=== PATIENT | female | born 1940 | race Caucasian/White ===

== ENCOUNTER 2016-11-16 21:51 | Emergency (ER) | payer OTHER ==
[~2016-11-16] VITALS: Ht 157.5 cm; Wt 60.2 kg
[~2016-11-16 21:51] MED LIST: AMLO-110 PO; ASPCH81 PO; ATEN-173 PO; BUDESUS; FLUT0.15 NAE; IPRA1AER2 INH; NAPR1TAB9 PO; SIMV20TA2 PO; TIOTCAP INH
[2016-11-16 21:53] VITALS: TEMP 36.5; Ht 157.5 cm; Wt 60.2 kg
[2016-11-16] MEDS ORDERED: DEXAMETHASONE SOD INJ 10 MG/ML VIAL IV ONE (22:15)
--- NOTE | 2016-11-16 22:36 | DIAGNOSTIC IMAGING REPORT ---
CHEST ONE VIEW PORTABLE CLINICAL HISTORY: Chest pain. COMPARISON STUDY: No previous studies for comparison. FINDINGS: The patient is rotated. Cardiac size is within normal limits. There is no pneumothorax or pleural effusion. Linear left midlung opacity reflect atelectasis or scarring. There is no evidence of pulmonary edema. There is tortuosity of the descending thoracic aorta. IMPRESSION: No acute cardiopulmonary findings. Electronically signed by: Salvador Jacinto M.D. 11/16/2016 10:34 PM Dictated Date/Time: 11/16/2016 10:33 PM
[2016-11-16 22:46] VITALS: O2SAT 95
--- NOTE | 2016-11-16 22:49 | DIAGNOSTIC IMAGING REPORT ---
LEFT KNEE 3 VIEWS CLINICAL HISTORY: Left knee pain. COMPARISON: None FINDINGS: Alignment of left knee is anatomic. Note is made of a 2.4 x 2 cm sclerotic lesion within the medial aspect of the proximal left tibia. Joint spaces are preserved. There is no acute fracture. No joint effusion is present. IMPRESSION: 1. No acute fracture. 2. 2.4 x 2 cm mixed sclerotic and lucent lesion within the medial aspect of the proximal left tibia. Although a benign etiology is favored, this lesion is indeterminate and if persistent pain, an MRI of the left knee could be obtained. Electronically signed by: Salvador Jacinto M.D. 11/16/2016 10:47 PM Dictated Date/Time: 11/16/2016 10:39 PM
[2016-11-16] MEDS ORDERED: ASPI81TA28 PO (22:53)
[2016-11-16] MEDS ORDERED: LPT/40 PO (22:53)
[2016-11-16] MEDS ORDERED: VNTHFA/IN INH (22:53)
[2016-11-16] MEDS ORDERED: AMLO5TAB2 PO (22:53)
[2016-11-16] MEDS ORDERED: CLOP1TAB15 PO (22:53)
[2016-11-16] MEDS ORDERED: LOSA25TA18 PO (22:53)
[2016-11-16] MEDS ORDERED: ADVIN25/60 INH (22:53)
[2016-11-16] MEDS ORDERED: NTRGSL/4 UT (22:53)
[2016-11-16] MEDS ORDERED: SPRIN/30 INH (22:53)
[2016-11-16 23:01] LABS: BASO % 0.7 %; BASO ABS # 0.05 K/uL (0-0.2); COMPLETE YES; EOS % 3.9 %; HEMATOCRIT 29.4 % (37-47); IG% 0.1 %; LYMPH % 11.6 %; LYMPH ABS # 0.78 K/uL (1.2-3.4); MEAN CELL VOLUME 83.1 fL (80-100); MEAN CORPUSCULAR HEMOGLOBIN 27.4 pg (25-34); MEAN PLATELET VOLUME 8.6 fL (7.4-10.4); MONO % 8.6 %; NEUT % 75.1 %; PLATELET COUNT 237 K/uL (130-400); RED BLOOD COUNT 3.54 M/uL (4.2-5.4); WHITE BLOOD COUNT 6.71 K/uL (4.8-10.8)
[2016-11-16] MEDS ORDERED: MoRPHine SULFATE 2 MG/ML CARP IV STA (23:16)
[2016-11-16] MEDS ORDERED: ONDANSETRON INJ 2 MG/ML 2 ML VIAL IV STA (23:16)
[2016-11-16 23:19] LABS: PARTIAL THROMBOPLASTIN RATIO 1.1; PROTHROMBIN TIME (PATIENT) 10.5 SECONDS (9.0-12.0)
[2016-11-16 23:21] LABS: ALT/SGPT 23 U/L (12-78); AST/SGOT 10 U/L (15-37); BLOOD UREA NITROGEN 25 mg/dl (7-18); BUN/CREATININE RATIO 22.9 (10-20); CALCIUM 8.6 mg/dl (8.5-10.1); CARBON DIOXIDE 24 mmol/L (21-32); CHLORIDE 105 mmol/L (98-107); GLUCOSE 128 mg/dl (70-99); MAGNESIUM 2.2 mg/dl (1.8-2.4); POTASSIUM 4.2 mmol/L (3.5-5.1); SODIUM 138 mmol/L (136-145)
[2016-11-16 23:26] LABS: ALB/GLOB RATIO 1.1 (0.9-2); ALKALINE PHOSPHATASE 82 U/L (45-117)
--- NOTE | 2016-11-16 23:28 | EMERGENCY ROOM VISIT NOTE ---
ED Visit Note First contact with patient: 21:59 I have personally evaluated and examined this patient. I agree with assessment and plan of Bebo Graves PA-C. Migratory polyarthralgia increasing pain over last 24 hours.
[2016-11-17] MEDS ORDERED: MoRPHine SULFATE 4 MG/ML 1 ML CARP\\VIAL IV STA (00:44)
[2016-11-17 01:46] LABS: LYME DISEASE AB IGG NEG (NEG)
[2016-11-17 02:21] LABS: LYME DISEASE AB IGM NEG (NEG)
[2016-11-17 02:24] VITALS: BP 116/71; PULSE 94; O2SAT 93
--- NOTE | 2016-11-17 02:41 | EMERGENCY ROOM VISIT NOTE ---
History First contact with patient: 21:59 Chief Complaint: SWELLING TO EXTREMITY Stated Complaint: SWELLING PAIN LOSS OF USE BOTH ARMS HANDS History of Present Illness The patient is a 76 year old female who presents to the Emergency Department by private vehicle with her son for evaluation of swelling to her bilateral hands and pain to the bilateral hands an knees. She has had worsening symptoms over the past 24 hours. 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 She has followed with rheumatology in the past , but not recently. She previously was on prednisone therapy chronically, but no longer takes his medications. She's had no fevers or chills. There is been no recent upper respiratory infections. There is been no known tick bites. There has been no rashes. There has been no falls or injuries to the affected areas. She rates her current discomfort as an 8/10. She has tried nothing over -the-counter for symptoms. The patient's history is complicated by a recent WA 5 weeks ago while visiting her son in [place]. She subsequently went into respiratory distress and was intubated for one week in the ICU. She had a cardiac catheterization performed which showed a 100% occlusion of the RCA. She had 2 stents placed at that time. She had been doing well, but there was a reported possible reaction to isosorbide which she was placed on by her manager welding. This medication was discontinued at his recommendation. The patient has a significant past medical history for COPD as well. She currently denies any chest pain, palpitations, short of breath, hemoptysis, abdominal pain, fevers, chills, back pain, or other extremity pain. Review of Systems A complete 10-point Review of Systems was discussed with the patient, with pertinent positives and negatives listed in the History of Present Illness. All remaining Review of Systems questions can be considered negative unless otherwise specified. 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 (3) Carotid stenosis (4) COPD, severe (5) Dyslipidemia (6) Heart failure, systolic, due to CAD (7) History of WA (myocardial infarction) (8) HTN (hypertension) (9) Mitral regurgitation (10) Osteoarthritis (11) Osteoporosis (12) PVD (peripheral vascular disease) (13) Respiratory failure Surgical Problems: (1) History of procedure for peripheral vascular disease (2) S/P coronary artery stent placement Social History Smoking Status: Former Smoker Alcohol Use: none Drug Use: none Housing Status: lives with family Occupation Status: retired Current/Historical Medications Scheduled Amlodipine Besylate (Norvasc), 5 MG PO DAILY Aspirin (Aspirin Ec), 81 MG PO DAILY Atenolol (Tenormin), 25 MG PO Q12 Atorvastatin (Lipitor), 40 MG PO DAILY Clopidogrel (Plavix), 75 MG PO DAILY Fluticasone Prop/Salmeterol (Advair Diskus 250/50 60 Dose), 1 PUFF INH BID Losartan Potassium (Cozaar), 25 MG PO DAILY Prednisone (Prednisone), 10 MG PO UD Tiotropium [place] (Spiriva Handihaler), 1 CAP INH DAILY Scheduled PRN Albuterol Hfa (Ventolin Hfa), 2 PUFFS INH Q4H PRN for Shortness of Breath Diphenhydramine Hcl (Benadryl Allergy), 1 CAP PO QID PRN for as needed Oxycodone/Acetaminophen 5MG/325MG (Percocet 5MG/325MG), 1 TABLET PO Q6H PRN for Moderate Pain Allergies Coded Allergies: No Known Allergies (Unverified , 11/19/16) Physical Exam Vital Signs Date Time Temp Pulse Resp B/P Pulse Ox O2 Delivery O2 Flow Rate FiO2 11/17/16 02:24 94 18 116/71 93 Room Air 11/17/16 02:21 91 Room Air 11/17/16 02:10 98 11/17/16 02:00 87 Room Air 11/17/16 01:27 91 16 142/75 94 Room Air 11/16/16 23:29 86 16 97/85 93 Room Air 11/16/16 22:46 95 Room Air 11/16/16 22:35 85 11/16/16 21:53 36.5 92 18 145/90 94 Room Air Pain Rating (0-10): 8 Physical Exam VITAL SIGNS - Vital signs and nursing notes were reviewed. GENERAL - 76-year-old female appearing her stated age who is in no acute distress. Communicates well with provider and answers questions appropriately. SKIN - Without rash. NECK - Neck with FROM. Supple to palpation. LUNGS - Chest wall symmetric without accessory muscle use, intercostals retractions, or central cyanosis. Normal vesicular breath sounds CTA B/L. No wheezes, rales, or rhonchi appreciated. CARDIAC - RRR with S1/S2. No murmur, rubs, or gallops appreciated. No reproducible tenderness to palpation appreciated over the anterior chest wall. ABDOMEN - Abdominal contour obese and without pulsations or visible masses. BS normoactive all four quadrants. No tenderness, palpable masses, hepatosplenomegaly, or ascites noted. EXTREMITIES - No clubbing or peripheral cyanosis. No pretibial edema present. Decreased range of motion secondary to subjective pain noted to the bilateral hands. Tenderness to palpation to the LEFT knee. No edmundo edema, erythema, or ecchymosis. +3/5 radial and dorsalis pedis pulses palpated throughout. +4/5 strength noted in UE/LE bilaterally. NEUROLOGIC - Cranial nerves II through XII grossly intact. Sensory intact to light touch throughout. PSYCH - A&Ox3 and cooperates fully with examiner. Pt is very pleasant and interacts well with examiner. Medical Decision & Procedures ER Provider Diagnostic Interpretation: Radiological imaging and reports were reviewed by myself. Radiologist's Interpretation as follows: CHEST ONE VIEW PORTABLE CLINICAL HISTORY: Chest pain. COMPARISON STUDY: No previous studies for comparison. FINDINGS: The patient is rotated. Cardiac size is within normal limits. There is no pneumothorax or pleural effusion. Linear left midlung opacity reflect atelectasis or scarring. There is no evidence of pulmonary edema. There is tortuosity of the descending thoracic aorta. IMPRESSION: No acute cardiopulmonary findings. LEFT KNEE 3 VIEWS CLINICAL HISTORY: Left knee pain. COMPARISON: None FINDINGS: Alignment of left knee is anatomic. Note is made of a 2.4 x 2 cm sclerotic lesion within the medial aspect of the proximal left tibia. Joint spaces are preserved. There is no acute fracture. No joint effusion is present. IMPRESSION: 1. No acute fracture. 2. 2.4 x 2 cm mixed sclerotic and lucent lesion within the medial aspect of the proximal left tibia. Although a benign etiology is favored, this lesion is indeterminate and if persistent pain, an MRI of the left knee could be obtained. Laboratory Results 11/16/16 22:40 Red Blood Count 3.54, Mean Corpuscular Volume 83.1, Mean Corpuscular Hemoglobin 27.4, Mean Corpuscular Hemoglobin Concent 33.0, Mean Platelet Volume 8.6, Neutrophils (%) (Auto) 75.1, Lymphocytes (%) (Auto) 11.6, Monocytes (%) (Auto) 8.6, Eosinophils (%) (Auto) 3.9, Basophils (%) (Auto) 0.7, Neutrophils # (Auto) 5.03, Lymphocytes # (Auto) 0.78, Monocytes # (Auto) 0.58, Eosinophils # (Auto) 0.26, Basophils # (Auto) 0.05 11/16/16 22:40 Test 11/16/16 22:40 White Blood Count 6.71 K/uL (4.8-10.8) Red Blood Count 3.54 M/uL (4.2-5.4) Hemoglobin 9.7 g/dL (12.0-16.0) Hematocrit 29.4 % (37-47) Mean Corpuscular Volume 83.1 fL (80-100) Mean Corpuscular Hemoglobin 27.4 pg (25-34) Mean Corpuscular Hemoglobin Concent 33.0 g/dl (32-36) Platelet Count 237 K/uL (130-400) Mean Platelet Volume 8.6 fL (7.4-10.4) Neutrophils (%) (Auto) 75.1 % Lymphocytes (%) (Auto) 11.6 % Monocytes (%) (Auto) 8.6 % Eosinophils (%) (Auto) 3.9 % Basophils (%) (Auto) 0.7 % Neutrophils # (Auto) 5.03 K/uL (1.4-6.5) Lymphocytes # (Auto) 0.78 K/uL (1.2-3.4) Monocytes # (Auto) 0.58 K/uL (0.11-0.59) Eosinophils # (Auto) 0.26 K/uL (0-0.5) Basophils # (Auto) 0.05 K/uL (0-0.2) RDW Standard Deviation 43.5 fL (36.4-46.3) RDW Coefficient of Variation 14.2 % (11.5-14.5) Immature Granulocyte % (Auto) 0.1 % Immature Granulocyte # (Auto) 0.01 K/uL (0.00-0.02) Erythrocyte Sedimentation Rate 28 mm/hr (0-21) Prothrombin Time 10.5 SECONDS (9.0-12.0) Prothromb Time International Ratio 1.0 (0.9-1.1) Activated Partial Thromboplast Time 29.2 SECONDS (21.0-31.0) Partial Thromboplastin Ratio 1.1 Anion Gap 9.0 mmol/L (3-11) Est Creatinine Clear Calc Drug Dose 38.4 ml/min Estimated GFR () 57.3 Estimated GFR (Non- 49.4 BUN/Creatinine Ratio 22.9 (10-20) Calcium Level 8.6 mg/dl (8.5-10.1) Magnesium Level 2.2 mg/dl (1.8-2.4) Total Bilirubin 0.2 mg/dl (0.2-1) Aspartate Amino Transf (AST/SGOT) 10 U/L (15-37) Alanine Aminotransferase (ALT/SGPT) 23 U/L (12-78) Alkaline Phosphatase 82 U/L (45-117) Troponin I < 0.015 ng/ml (0-0.045) C-Reactive Protein 3.60 mg/dl (0-0.29) Total Protein 6.7 gm/dl (6.4-8.2) Albumin 3.5 gm/dl (3.4-5.0) Globulin 3.2 gm/dl (2.5-4.0) Albumin/Globulin Ratio 1.1 (0.9-2) Lyme Disease IgG Antibody NEG (NEG) Lyme Disease IgM Antibody NEG (NEG) Medications Administered Medications (Trade) Dose Ordered Sig/Alcira Route Start Time Stop Time Status Last Admin Dose Admin Dexamethasone Sodium Phosphate (Decadron Inj) 10 mg NOW ONCE IV 11/16/16 22:15 11/16/16 22:16 DC 11/16/16 22:40 10 MG Morphine Sulfate (MoRPHine SULFATE INJ) 2 mg NOW STAT IV 11/16/16 23:16 11/16/16 23:17 DC 11/16/16 23:29 2 MG Ondansetron HCl (Zofran Inj) 4 mg NOW STAT IV 11/16/16 23:16 11/16/16 23:17 DC 11/16/16 23:28 4 MG Morphine Sulfate (MoRPHine SULFATE INJ) 4 mg NOW STAT IV 11/17/16 00:44 11/17/16 00:45 DC 11/17/16 00:54 4 MG Oxycodone/ Acetaminophen (Percocet 5/ 325MG Home Pack) 1 homepack UD ONCE PO 11/17/16 02:45 11/17/16 02:46 DC 11/17/16 02:54 1 HOMEPACK Procedure Patient was placed on the manager monitoring and monitored throughout the entire extent of their stay. In addition, the patient's pulse oximetry was monitored throughout the entire stay. Any abnormalities or aberrancies were addressed appropriately. ECG Indication: other (recent WA) Rate (beats per minute): 84 Rhythm: normal sinus Findings: nonspecific-ST abn (Lateral) Comparison ECG Date: no prior available ED Course Patient was seen and evaluated by myself. Labs were drawn, saline lock in place. EKG and chest x-rays were obtained. X-ray of the LEFT knee was obtained. Patient was treated with 10 mg Decadron intravenously. She received 2 mg morphine and 4 mg Zofran for pain. Laboratory results demonstrate no acute leukocytosis. The patient has a mild anemia. She has no significant electrolyte abnormalities. Cardiac enzymes were negative. Troponin was negative. Patient was reevaluated and has some mild ongoing pain. She was treated with an additional 4 mg morphine intravenously. The patient's stay was delayed by the lab error on the patient's Lyme titer. The machine had malfunctioned. This was relayed to the family who acknowledges understanding. Lyme test eventually returned and Lyme titers were negative. Laboratory results and imaging studies were reviewed with the patient and family who acknowledges understanding. Case was discussed with my attending physician who independently evaluated the patient and agrees with the diagnostic approach treatment plan. The patient has a follow-up appointment tomorrow with her primary care provider. She will keep this appointment. She and family were comfortable with disposition and plan. She was educated on worrisome symptoms for return visit to the emergency department. Patient discharged home in good condition with her family driving. Medical Decision Given the patient's presentation and stated complaints, I did elect to perform the above-mentioned workup. The patient presents today with subjective swelling to the bilateral hands an knees. Her symptoms have progressed over the past 24 hours. She has no fevers. There is been no rashes. There is been no recent upper respiratory infections. 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 She had been on chronic steroid therapy. This has been many years ago. Her exam demonstrates pain to the bilateral hands as well as pain through range of motion. She does have pain with range of motion of the LEFT knee as well. I did perform a cardiac evaluation given the patient's recent significant cardiac history despite any complaints of chest pain or shortness of breath issues. Her cardiac evaluation was otherwise unremarkable. Cardiac enzymes were not elevated. X-ray of her knee did demonstrate a sclerotic area, however her symptoms are more acute and there is been no recent trauma. This is certainly is something that she can follow up with in the outpatient setting. She has no fever leukocytosis. Her pain was adequately controlled the emergency setting. She was placed on IV dose of steroids after discussion with my attending physician. She will be placed in a short course of steroids as well as Percocet for breakthrough pain which she has had the past with success. She does have a follow-up appointment tomorrow with her primary care provider. I feel this is appropriate for continuity of care. She and her family were educated on worrisome symptoms for return visit to the emergency department. They're comfortable with disposition and plan. Patient discharged home afebrile and in good condition. In the evaluation and treatment of this patient, the following differential diagnoses were considered: Septic arthritis, Lyme disease, reactive arthritis, cellulitis, autoimmune reaction, vascular abnormality, medication reaction, fracture, ischemia, ACS, WA, amongst others. Impression Primary Impression: Polyarthralgia Departure Information Dispostion Home / Self-Care Condition GOOD Referrals Dereje Briones D.O. (PCP) Patient Instructions My [facility] Additional Instructions You have been seen in the emergency permit today for polyarthralgias. You have been prescribed Percocet to be used for pain control. This is a narcotic medication. You cannot drive or consume alcohol while on this medicine. This medicine should only be used for pain that cannot be controlled with [id number] pain medicines. You have been prescribed Prednisone for the next several days as prescribed. This is an anti-inflammatory medicine to be used to help minimize your symptoms. You should take the COMPLETE course of the medication. For pain control, you can use the following [id number] medicines (if >12 yo): - Regular strength (325mg/tab) Tylenol (acetaminophen) 2 tabs every 4-6 hours as needed. Do not exceed 12 tablets in a 24 hour period. Avoid taking more than 4 grams (4000 mg) of Tylenol per day. This includes any other sources of acetaminophen you may take on a regular basis. - Regular strength (200 mg/tab) Advil (ibuprofen) 1-2 tabs every 4-6 hours as needed. Do not exceed a dose of 3200 mg per day. Keep your appointment with your primary care provider tomorrow as scheduled. Return for any changing or worsening symptoms.
[2016-11-17] MEDS ORDERED: PERCOCET HOME PACK PO ONE (02:45)
== END 2016-11-17 02:59 | disposition home or self-care (01) ==
LOC: C.EDB 21:52 → C.EDC 11-17 02:59
DX: M25.541 Pain in joints of right hand (principal); M25.542 Pain in joints of left hand; M25.561 Pain in right knee; M25.562 Pain in left knee; I25.2 Old myocardial infarction; I70.90 Unspecified atherosclerosis; J44.9 Chronic obstructive pulmonary disease, unspecified; I77.1 Stricture of artery; I10 Essential (primary) hypertension; M19.90 Unspecified osteoarthritis, unspecified site; J96.90 Respiratory failure, unspecified, unspecified whether with hypoxia or hypercapnia; I73.9 Peripheral vascular disease, unspecified; Z87.891 Personal history of nicotine dependence; Z79.82 Long term (current) use of aspirin; Z79.02 Long term (current) use of antithrombotics/antiplatelets; Z79.52 Long term (current) use of systemic steroids; Z79.899 Other long term (current) drug therapy

== ENCOUNTER 2016-11-19 10:27 | Inpatient (IN) | payer OTHER ==
[2016-11-19] VITALS (48 sets, daily range): BP systolic 56–105; BP diastolic 44–70; PULSE 74–134; TEMP 34.2–35.1; O2SAT 97–100; Ht 160 cm; Wt 58.8 kg
[~2016-11-19] VITALS: Ht 160 cm; Wt 58.8 kg
[~2016-11-19 10:27] MED LIST changes: +ADVIN25/60 INH; -AMLO-110 PO; +AMLO5TAB2 PO; -ASPCH81 PO; +ASPI81TA28 PO; -BUDESUS; +CLOP1TAB15 PO; -FLUT0.15 NAE; -IPRA1AER2 INH; +LOSA25TA18 PO; +LPT/40 PO; -NAPR1TAB9 PO; +NTRGSL/4 UT; -SIMV20TA2 PO; +SPRIN/30 INH; -TIOTCAP INH; +VNTHFA/IN INH
[2016-11-19] MEDS ORDERED: METHYLPREDNISOLONE 125 MG VIAL IV STA (10:52)
[2016-11-19] MEDS ORDERED: SODIUM CHLORIDE 0.9% 1000ML 1,000 ML IV STA (10:52)
[2016-11-19] MEDS ORDERED: MAGNESIUM SULFATE 1GM / D5W 1 GM BAG ONE (10:56)
[2016-11-19] MEDS ORDERED: ALBUT/IPRATROP 3MG/0.5MG NEB 3 ML VIAL ONE (10:59)
[2016-11-19] MEDS ORDERED: ALBUT/IPRATROP 3MG/0.5MG NEB 3 ML VIAL INH ONE (11:00)
[2016-11-19] MEDS ORDERED: FENTANYL CITRATE INJ 50 MCG/1 ML 2 ML VIAL IV STA (11:08)
[2016-11-19] MEDS ORDERED: ROCURONIUM BROMIDE 10 MG/ML 5 ML VIAL IV STA (11:08)
[2016-11-19 11:11] LABS: PARTIAL THROMBOPLASTIN RATIO 1.2; PROTHROMBIN TIME (PATIENT) 10.5 SECONDS (9.0-12.0)
[2016-11-19] MEDS ORDERED: MIDAZOLAM HCL 1 MG/ML 2ML VIAL IV PRN (11:15)
[2016-11-19] MEDS ORDERED: FENTANYL CITRATE INJ 50 MCG/1 ML 2 ML VIAL IV PRN ×2 (11:15→14:00)
[2016-11-19] MEDS ORDERED: FUROSEMIDE 40 MG/4 ML VIAL ONE (11:18)
--- NOTE | 2016-11-19 11:18 | DIAGNOSTIC IMAGING REPORT ---
SINGLE VIEW CHEST CLINICAL HISTORY: Respiratory failure. Intubation. Cardiac arrest. FINDINGS: 2 AP, portable, supine chest radiographs are compared to study dated 11/16/2016. The examination is significantly degraded by portable technique and patient rotation. An endotracheal tube has been placed. The tip projects at the roger and appears to project over the right mainstem bronchus on one of the images. This should be pulled back. The heart is top normal for projection and there is atherosclerotic calcification of the thoracic aorta. Pulmonary vascular congestion is new from previous. Emphysema is suspected. Chronic interstitial thickening is noted. No focal airspace consolidation or large pleural effusion is identified. There is a 2.1 cm nodular density projecting over the right lung base. No pneumothorax is seen. The skeletal structures are osteopenic. The bony thorax is grossly intact. IMPRESSION: 1. An endotracheal tube has been placed. The tip of the catheter projects at the roger and appears to project over the right mainstem bronchus and of the images. This should be pulled back. 2. Pulmonary vascular congestion is new from 11/16/2016. 3. Advanced emphysema. 4. No airspace consolidation or large pleural effusion is identified. 5. A 2.1 cm nodular density projects over the right lung base. This is concerning for neoplasm. Follow-up with a dedicated chest CT is recommended with the patient is clinically able. Electronically signed by: Raf Francois M.D. 11/19/2016 11:16 AM Dictated Date/Time: 11/19/2016 11:12 AM
[2016-11-19] MEDS ORDERED: DOBUTamine 500MG / 250ML D5W ONE (11:19)
[2016-11-19] MEDS ORDERED: ETOMIDATE 2 MG/ML 20 ML VIAL IV STA (11:20)
[2016-11-19 11:34] LABS: ALT/SGPT 29 U/L (12-78); AST/SGOT 20 U/L (15-37); BASO % 0.2 %; BASO ABS # 0.03 K/uL (0-0.2); BLOOD UREA NITROGEN 32 mg/dl (7-18); BUN/CREATININE RATIO 26.7 (10-20); CALCIUM 8.4 mg/dl (8.5-10.1); CARBON DIOXIDE 27 mmol/L (21-32); CHLORIDE 102 mmol/L (98-107); COMPLETE YES; EOS % 0.2 %; GLUCOSE 323 mg/dl (70-99); IG% 0.9 %; LYMPH % 22.2 %; LYMPH ABS # 3.63 K/uL (1.2-3.4); MAGNESIUM 2.6 mg/dl (1.8-2.4); MEAN CORPUSCULAR HEMOGLOBIN 28.1 pg (25-34); MEAN CORPUSCULAR HGB CONC 32.4 g/dl (32-36); MEAN PLATELET VOLUME 8.9 fL (7.4-10.4); MONO % 7.2 %; NEUT % 69.3 %; PLATELET COUNT 432 K/uL (130-400); POTASSIUM 4.6 mmol/L (3.5-5.1); RED BLOOD COUNT 3.91 M/uL (4.2-5.4); SODIUM 140 mmol/L (136-145); WHITE BLOOD COUNT 16.32 K/uL (4.8-10.8)
[2016-11-19 11:38] LABS: ALKALINE PHOSPHATASE 75 U/L (45-117); CKMB/CK RATIO 3.5 (0-3.0)
[2016-11-19] MEDS ORDERED: OPTIRAY 320 IV PRN (11:45)
[2016-11-19 12:04] LABS: BETA-HYDROXYBUTYRATE 1.29 mg/dL (0.2-2.81)
--- NOTE | 2016-11-19 12:04 | Critical Care Consultation ---
Critical Care Consultation Date of Consultation: Nov 19, 2016. Attending Physician: Jacquse James Reason for Consultation: Acute respiratory failure History of Present Illness I was called to the bedside and in the emergency department due to respiratory arrest. History obtained from prehospital personnel, ER physician, and prior medical records. Patient had sudden onset shortness of breath at her residence this morning per EMS 911 was called upon their arrival she was hypoxic, they attempted to intubate the patient but were unable to and proceeded to bag ventilate the patient until her arrival at [facility]. The report that they had difficulty obtaining IV access as well as recording systolic blood pressures. At one point there was a verbal report of a systolic blood pressure of 140. Upon arrival in the emergency department it was difficult to obtain a pulse ox reading as well as a actual blood pressure, however she did have 2+ pulses in her radial, femoral, carotid arteries. When there was a pulse oximetry reading her sats were always greater than 92%. She was immediately intubated by the emergency department physician, given the difficulty of obtaining a blood pressure I placed a right radial arterial line. Bedside ultrasound revealed diffuse pulmonary edema as well as a depressed EF globally. We proceeded with diuretics for cardiogenic pulmonary edema. We also started dobutamine. Later is given additional history that the patient had been seen in [place] at [facility]. We have attempted to receive medical records from [facility]. The [facility] medical team was able to obtain a pulmonary consult from that admission. From what I can gather it appears she had a respiratory acidosis that prompted intubation and mechanical ventilation. They were able to extubate the patient and she was found to have a possible non-ST elevation IN. She underwent further evaluation was found to have a blocked right coronary artery who received 2 stents. I'm unclear if these were drug-eluting stents but the family reports that she is on aspirin and Plavix. Additional history from the family states that she has COPD from long-standing smoking, peripheral vascular disease, no history of blood clots that they're aware of, however one of the son stated that she was on blood thinners but unknown what type. Accordingly we proceeded to obtain a noncontrast CT scan of the head, and a subsequent contrasted CT scan to exclude pulmonary embolism. She was transferred from the emergency department to the CT scan and immediately into the ICU. Upon her arrival in the ICU a left internal jugular vein central venous catheter was placed for administration of high-dose vasoactive medications. Her blood pressure continued to decline and a second vasoactive agent was added , epinephrine. We ordered a stat echocardiogram which was obtained and immediately read by Dr. Jordan Gabriel finding of which I discussed with him at the bedside. Considerations were given for possible aortic balloon pump, Huslia- Shun catheter. Due to her extensive peripheral vascular disease and administrative restrictions she was not a candidate for aortic balloon pump placement she was not a candidate for either placement at our facility. It was felt that she could possibly benefit from ECMO versus LVAD versus N [place] device placement at a tertiary care center, the closest tertiary care center with those capabilities was [facility]. I had an extensive discussion with the ICU physician Dr. Tiwari FALC use ECI and their cardiothoracic surgeon. They were again concerned given her peripheral vascular disease if they would be able to achieve access. Dr. Gabriel and myself were both edmundo with the family that the patient is critically ill and with transfer to a tertiary care facility they still may not be able to correct the underlying cardiogenic shock process. Further she is at risk for decompensation during helicopter transport. The family was expectedly tearful, and were all in agreement that transfer to the tertiary care facility was her best chance. We did express that if the family did not want additional aggressive care she could remain at this hospital, however I am highly suspect of a grave prognosis. The family is in agreement to attempt further stabilization at [facility]. Past Medical/Surgical History Peripheral vascular disease Coronary artery disease status post stenting 2 weeks ago Hypertension Extensive smoking history Questionable interstitial lung disease. Social History Smoking Status: Unknown if Ever Smoked Drug Use: none Housing Status: lives with family Occupation Status: retired Allergies Coded Allergies: No Known Allergies (Unverified , 11/19/16) Home Medications Scheduled Amlodipine Besylate (Norvasc), 5 MG PO DAILY Aspirin (Aspirin Ec), 81 MG PO DAILY Atenolol (Tenormin), 25 MG PO Q12 Atorvastatin (Lipitor), 40 MG PO DAILY Clopidogrel (Plavix), 75 MG PO DAILY Fluticasone Prop/Salmeterol (Advair Diskus 250/50 60 Dose), 1 PUFF INH BID Losartan Potassium (Cozaar), 25 MG PO DAILY Prednisone (Prednisone), 10 MG PO UD Tiotropium [place] (Spiriva Handihaler), 1 CAP INH DAILY Scheduled PRN Albuterol Hfa (Ventolin Hfa), 2 PUFFS INH Q4H PRN for Shortness of Breath Diphenhydramine Hcl (Benadryl Allergy), 1 CAP PO QID PRN for as needed Oxycodone/Acetaminophen 5MG/325MG (Percocet 5MG/325MG), 1 TABLET PO Q6H PRN for Moderate Pain Current Inpatient Medications Current Inpatient Medications Medications (Trade) Dose Ordered Sig/Alcira Route Start Time Stop Time Status Last Admin Dose Admin Midazolam HCl (Versed Inj) 2 mg Q5M PRN IV 11/19/16 11:15 12/19/16 11:14 Fentanyl Citrate (Fentanyl Inj) 50 mcg Q15M PRN IV 11/19/16 11:15 12/03/16 11:14 Ioversol (Optiray 320) 100 ml UD PRN IV 11/19/16 11:45 11/23/16 11:44 UNV Review of Systems Unable to obtain secondary to patient condition Physical Exam Date Time Temp Pulse Resp B/P Pulse Ox O2 Delivery O2 Flow Rate FiO2 11/19/16 10:59 98 Mechanical Ventilator 35 11/19/16 10:49 109 11/19/16 10:37 95 Ambu-Bag 11/19/16 10:37 36.9 112 106/74 95 Ambu-Bag 15.0 General Appearance: severe distress Head: normocephalic, atraumatic Eyes: no discharge (pupils reactive 4-2) Neck: trachea midline, other (intubated by emergency department physician) Respiratory: respiratory distress, rhonchi, other (poor air movement with scattered rhonchi and rales) Cardiovasular: normal peripheral pulses, irregular rate (tachycardia) Abdomen: non tender, hypoactive bowel sounds Genitourinary - Female: external genitalia normal (Arambula in place) Back: no midline tenderness Upper Extremities: no edema Lower Extremities: no edema (no obvious peripheral edema) Pulses: carotid (R) (2+), carotid (L) (2+), radial (R) (1+), radial (L) (1+), femoral (R) (2+), femoral (L) (2+) Neuro: decreased LOC (GCS 8) Laboratory Results Last 24 Hours Test 11/19/16 10:35 11/19/16 10:52 11/19/16 10:56 11/19/16 11:22 White Blood Count 16.32 K/uL Red Blood Count 3.91 M/uL Hemoglobin 11.0 g/dL Hematocrit 34.0 % Mean Corpuscular Volume 87.0 fL Mean Corpuscular Hemoglobin 28.1 pg Mean Corpuscular Hemoglobin Concent 32.4 g/dl Platelet Count 432 K/uL Mean Platelet Volume 8.9 fL Neutrophils (%) (Auto) 69.3 % Lymphocytes (%) (Auto) 22.2 % Monocytes (%) (Auto) 7.2 % Eosinophils (%) (Auto) 0.2 % Basophils (%) (Auto) 0.2 % Neutrophils # (Auto) 11.31 K/uL Lymphocytes # (Auto) 3.63 K/uL Monocytes # (Auto) 1.18 K/uL Eosinophils # (Auto) 0.03 K/uL Basophils # (Auto) 0.03 K/uL RDW Standard Deviation 46.7 fL RDW Coefficient of Variation 14.7 % Immature Granulocyte % (Auto) 0.9 % Immature Granulocyte # (Auto) 0.14 K/uL Nucleated RBC Absolute Count (auto) 0.03 K/uL Nucleated Red Blood Cells % 0.2 % Prothrombin Time 10.5 SECONDS Prothromb Time International Ratio 1.0 Activated Partial Thromboplast Time 30.1 SECONDS Partial Thromboplastin Ratio 1.2 Sodium Level 140 mmol/L Potassium Level 4.6 mmol/L Chloride Level 102 mmol/L Carbon Dioxide Level 27 mmol/L Anion Gap 11.0 mmol/L Blood Urea Nitrogen 32 mg/dl Creatinine 1.20 mg/dl Est Creatinine Clear Calc Drug Dose 37.1 ml/min Estimated GFR () 51.6 Estimated GFR (Non- 44.5 BUN/Creatinine Ratio 26.7 Random Glucose 323 mg/dl Calcium Level 8.4 mg/dl Magnesium Level 2.6 mg/dl Total Bilirubin 0.3 mg/dl Direct Bilirubin mg/dl Aspartate Amino Transf (AST/SGOT) 20 U/L Alanine Aminotransferase (ALT/SGPT) 29 U/L Alkaline Phosphatase 75 U/L Total Creatine Kinase 65 U/L Creatine Kinase MB 2.3 ng/ml Creatine Kinase MB Ratio 3.5 Total Protein 7.0 gm/dl Albumin 3.4 gm/dl Chemistry Specimen Hemolysis Bedside Troponin I 0.000 ng/ml TD-Gsb-G-Type Natriuretic Peptide 5302 pg/ml Bedside Lactic Acid Venous 2.16 mmol/L Diagnostic Results I personally reviewed the initial chest x-ray as well as radiology report, chest x-ray status post left internal jugular central venous catheter placement and nasogastric tube placement. There is no pneumothorax in the left lung, nasogastric tube extends below the diaphragm. I personally reviewed the radiology report as well as the images of the contrasted CT scan of the chest as well as a non-con scan of the head. I personally discussed the ago radiography report with data center project manager at bedside I personally reviewed the serial EKGs which remained largely unchanged during the course of her stay. Assessment & Plan Neuro: Toxic metabolic encephalopathy: Versed infusion and fentanyl injection as needed for pain goal RASS -2 Cardiovascular: Cardiogenic shock: On dobutamine 10 mcg/kg/m, vasopressin 0.04 units, norepinephrine, epinephrine. Unable to place aortic balloon pump, transfer to [facility] for possible in [place] placement. Respiratory: Acute hypercarbic respiratory failure. Maximum ventilator support. Abdomen: Nothing by mouth Renal: Lactic acidosis secondary to shock Bicarbonate infusion: Running at 125 ML's per hour Patient was given 3 A of bicarbonate IV push. Endocrine: Patient started on steroids for COPD and possible reactive airway disease and emergency department. Insulin infusion started for hyperglycemia. Hematology: Patient on aspirin and Plavix. Considered heparin at this point however there is no overt signs of cardiac ischemia, we will hold heparin as patient likely to be undergoing invasive procedures upon arrival to [facility] Infectious disease: Interstitial process of unclear etiology seen on CT scan. Procalcitonin not indicative of sepsis Initial lactic acid was 2 in emergency department I do not feel that this is infectious etiology moreover I feel this is cardiogenic in nature given the patient's recent history. Patient's medical decision maker is her son Kenneth Martinez his cell phone is [phone]. Patient will be transferred to the medical intensive care unit at [facility] on the care of Dr. Monaco I have personally spent 180 minutes of critical care time in the direct management of this patient. This is a life/limb threatening event. This includes time spent evaluating patient, direct bedside care, chart review, placing orders, interpretation of diagnostic studies, discussion with consultants, patient, and family members, as well as other required patient management activities. This time is exclusive of all separately billable procedures, and teaching time and separate from and in addition to any other critical care service time.
--- NOTE | 2016-11-19 12:06 | Procedure Note ---
Procedure Note Procedure Date Nov 19, 2016. Procedure Description Procedure Name: Right radial arterial line Procedure time out: side/site verified, patient ID confirmed, correct procedure Consent obtained: emergent consent implied Time of procedure: 11:00 Performed by: attending Indications: diagnostic Contraindications: none Description: Indication: Hypotension inability to obtain a manual blood pressure Description of procedure: Patient's right wrist was prepped with chlorhexidine, and draped in a sterile fashion. 1 mL of 1% lidocaine without epinephrine was used to anesthetize the area. Dynamic ultrasound guidance was employed, a 20- gauge 1.75 inch arterial catheter was placed percutaneously into the right radial artery with adequate blood return. Patient tolerated the procedure well with trace blood loss. The line was sutured in place with 2-0 silk. Complications: none Patient tolerated procedure: well Post-procedure vital signs: reviewed and stable
--- NOTE | 2016-11-19 12:07 | DIAGNOSTIC IMAGING REPORT ---
CT SCAN OF THE BRAIN WITHOUT IV CONTRAST CLINICAL HISTORY: Change in mental status. COMPARISON STUDY: No priors. TECHNIQUE: Unenhanced axial CT scan of the brain is performed from the vertex to the skull base. CT DOSE: 1049.58 mGy.cm FINDINGS: Brain parenchyma: There are age-related involutional changes noting mild subcortical and periventricular microangiopathic change. There is no hemorrhage, mass effect, or evidence of acute territorial ischemia by CT criteria. Marroquin-white matter is preserved. No extra-axial fluid collection is seen. Ventricles, sulci, cisterns: Prominent secondary to involutional change. Intracranial vasculature: There is atherosclerotic calcification of the cavernous carotid and vertebral arteries. Calvarium: Unremarkable. Sinuses and mastoids: The visualized paranasal sinuses are clear. The mastoid air cells are well pneumatized. Orbits: The bony orbits are grossly intact. IMPRESSION: There is no hemorrhage, mass effect, or evidence of acute territorial ischemia by CT criteria. Electronically signed by: Raf Francois M.D. 11/19/2016 12:05 PM Dictated Date/Time: 11/19/2016 12:03 PM
--- NOTE | 2016-11-19 12:11 | Procedure Note ---
Procedure Note Date of Service Nov 19, 2016. Procedure Note Procedure date: 11/19/2016 Procedure: fiberoptic bronchoscopy Pre-procedure Diagnosis: Acute respiratory failure, hypoxic, inability to ventilate Post-procedure Diagnosis: same as above Prior to Procedure: Informed Consent: The risks, benefits, indications, potential complications, and alternatives were not explained to the patient/family and informed consent obtained. Emergency consent implied Attending Staff: Callie Guo DO Resident/APC: None Skin Prep: Not applicable Anesthesia: 2 mg Versed Indications: This is 76-year-old female with acute hypoxic respiratory failure who was intubated in the emergency department and under the influence of neuromuscular blockade. When the patient was placed on the ventilator we were unable to achieve adequate tidal volumes, the patient had high peak airway pressures. We had pulled back the endotracheal tube from 24 cm to 21 cm which was the original intubation depth and by auscultation we noticed more airflow. A limited bedside ultrasound of the thorax was undertaken there was no evidence of pneumothorax, there was evidence of diffuse pulmonary edema. We started magnesium and gave bronchodilators, despite this were still unable to achieve an adequate tidal volume less than 100 mL due to this we undertook a emergent bronchoscopy to exclude mucous plugging. The identity of the patient was confirmed and a bedside time out was performed. When I entered the bronchial tree the endotracheal tube had advanced into the right mainstem, the tube was retracted 2 cm to 19 cm, at that point we were able to achieve adequate tidal volumes. There were clear frothy secretions in both airways consistent with acute pulmonary edema, I did not see any mucopurulent secretions consistent with a infectious process so a bronchoalveolar lavage was not undertaken. Description of Procedure: Fiberoptic bronchoscopy was performed via endotracheal tube. Bronchioalveolar lavage was not performed. Findings included : Clear thin frothy secretions consistent with acute pulmonary edema Complications: None Specimens: None Estimated blood loss: Zero
--- NOTE | 2016-11-19 12:15 | DIAGNOSTIC IMAGING REPORT ---
CT ANGIOGRAM OF THE CHEST CLINICAL HISTORY: Dyspnea. COMPARISON STUDY: Chest x-ray dated 11/19/2016. TECHNIQUE: Following the IV administration of 118 cc of Optiray 320, CT angiogram of the chest was performed from the upper abdomen to the thoracic inlet utilizing the pulmonary embolus protocol. Images are reviewed in the axial, sagittal, and coronal planes. 3-D MIPS images are created and assessed. IV contrast was administered without complication. The Examination is degraded by motion artifact, as well as by streak artifact from the patient's arms which could not be elevated above the chest. FINDINGS: Thyroid: Imaged portions of the thyroid gland are normal in size and attenuation. Thoracic aorta: There is advanced atherosclerotic calcification of the thoracic aorta is normal in caliber and demonstrates standard 3-vessel arch anatomy. No dissection is seen. 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 Pulmonary vasculature: The pulmonary trunk is normal in caliber. There are no filling defects identified in main, lobar, or segmental pulmonary branches to suggest pulmonary embolus. Heart: The heart is normal in size and configuration, and without pericardial effusion. The coronary arteries are densely calcified. Lungs and pleural spaces: An endotracheal tube terminates just above the roger. Emphysema is present. There are small pleural effusions with patchy bibasilar airspace consolidation. Patchy airspace opacities are also present in the upper lobes, right greater than left. Diffuse peribronchial thickening is noted. There is also diffuse intralobular septal thickening. A fat-containing Bochdalek hernia is seen at the left lung base. There are scattered calcified granulomas. Mediastinum: There is no mediastinal lymphadenopathy. Alesha: Clear. Axillae: There is no axillary lymphadenopathy. Upper abdomen: Partially visualized upper abdominal viscera is within normal limits. Skeletal structures: The skeletal structures are osteopenic. No lytic or blastic bony lesions are seen. Degenerative change is seen throughout the thoracic spine. Mild compression deformities are noted involving T9 and T12. IMPRESSION: 1. Motion and streak artifact degraded examination. 2. There is no evidence of pulmonary embolus in the main, lobar, or segmental pulmonary arteries. 3. Emphysema. 4. There is diffuse intralobular septal thickening consistent with interstitial edema. 5. Small pleural effusions. 6. There is patchy bibasilar airspace consolidation. Consolidative changes also seen in the upper lobes, right greater than left. Although some of this could be related to pulmonary edema, an infectious/inflammatory pneumonitis is also suspected. Clinical correlation will be required. Radiographic follow-up to resolution is recommended. 7. There is advanced atherosclerotic disease identified. High-grade stenosis is seen in the left subclavian artery. 8. No mass lesion is identified. The density at the right lung base seen by chest x-ray likely corresponds to airspace consolidation. Electronically signed by: Raf Francois M.D. 11/19/2016 12:13 PM Dictated Date/Time: 11/19/2016 12:05 PM
--- NOTE | 2016-11-19 12:20 | Procedure Note ---
Procedure Note Date of Service Nov 19, 2016. Procedure Note Critical Care Medicine Point of Care Bedside Ultrasound Procedure: Limited Transthoracic Echocardiogram Indication: Acute respiratory failure with hypotension Date: 11/19/2016 Attending: Callie Guo DO Fellow/Resident/Physician Overhead Worker: Not applicable Organs Examined: Heart, Vascular system, lungs Pericardial fluid: Absent Right ventricle size: Normal LV Contractility: Poor, hypokinetic no obvious wall motion abnormalities RV Contractility: Poor, hypokinetic not overfilled IVC size: SIZE in CM greater than 1.2 cm no significant respiratory variation (< 1.2 cm predicts right atrial pressure < 10 mmHg) Mechanically ventilated breaths: Yes Hemodynamic Status: No vasoactive medications during ultrasound, blood pressure was 90s systolic IVC respiratory variation % Spontaneous breaths: No Positive Pressure breaths: Less than 10% (> 20% variation indicative of fluid responsiveness) Intravascular volume status: Hypervolemic Critical Care Medicine Point of Care Bedside Ultrasound Procedure: Limited Bedside thoracic Ultrasound Procedure Date: 11/19/2016 Indication: Acute hypoxic respiratory failure with hypotension Attending: Callie Guo DO Resident/Physician Overhead Worker: None Organs Examined: Lung BLUE point (upper), BLUE point (lower), Phrenic Point (axillary), PLAPS point ( posterior) A lines visualized: None, Hemithorax: bilateral B lines visualized: Diffuse solid white out, Hemithorax: bilateral Lung Sliding: Present, Hemithorax: bilateral Tissue-like Sign: Absent, Hemithorax: bilateral Shred Sign: Absent, Hemithorax: Or lateral Quad Sign: Absent, Hemithorax: Bilateral Sinusoid Sign: Absent, Hemithorax: Bilateral Type of effusions: Absent, Hemithorax: Not applicable Interpleural distance: Applicable Bilateral limited to point venous compression test was completed Bilateral common femoral vein visualized and completely compressible Bilateral tibial vein visualized and completely compressible Impression: Acute cardiogenic pulmonary edema with probable cardiogenic shock secondary to left-sided heart failure and volume overload, no evidence of DVT on limited ultrasound Plan: Diuresis, bronchodilators
[2016-11-19] MEDS ORDERED: DIPH25CA65 PO (12:49)
[2016-11-19] MEDS ORDERED: PRD10 PO (12:49)
[2016-11-19] MEDS ORDERED: OXYC-57 PO (12:49)
[2016-11-19 13:16] LABS: URINE APPEARANCE CLEAR (CLEAR); URINE BILIRUBIN NEG (NEG); URINE COLOR YELLOW; URINE NITRITE NEG (NEG); URINE PH 5.5 (4.5-7.5); URINE SPECIFIC GRAVITY 1.014 (1.000-1.030); UROBILINOGEN NEG (NEG)
[2016-11-19] MEDS ORDERED: DOBUTamine / D5W 500 MG IV PRN (13:16)
[2016-11-19 13:17] LABS: MANUAL MICROSCOPIC REQUIRED? NO; REVIEW REQ? NO
[2016-11-19] MEDS ORDERED: EpINEphrine HCL INJ 4 MG in DEXTROSE 5% 250ML 250 ML IV PRN ×3 (13:30→17:00)
--- NOTE | 2016-11-19 13:48 | DIAGNOSTIC IMAGING REPORT ---
SINGLE VIEW CHEST CLINICAL HISTORY: Central venous catheter placement. Cardiac arrest. FINDINGS: An AP, portable, supine chest radiograph is compared to chest x-ray and chest CT performed earlier the same day 11/20/2015. The examination is significantly degraded by portable technique and patient rotation. The endotracheal tube has been repositioned. The tip now projects 2 cm above the roger. A left internal jugular central venous catheter has been placed. The tip projects over the SVC. An enteric tube projects below the diaphragm. The tip is not visualized. The heart is top normal for projection and there is atherosclerotic calcification of the thoracic aorta. Pulmonary vascular congestion is again noted. Emphysema is observed. There is increasing patchy airspace consolidation at the lung bases, right greater than left as compared to earlier today. No large pleural effusion or pneumothorax is seen. The skeletal structures are osteopenic. The bony thorax is grossly intact. IMPRESSION: 1. Lines and tubes as above. No pneumothorax is seen post procedure. 2. Pulmonary vascular congestion is again noted. 3. Emphysema. 4. There is increasing airspace consolidation at the lung bases, right greater than left as compared to today's earlier examinations. Electronically signed by: Raf Francois M.D. 11/19/2016 1:45 PM Dictated Date/Time: 11/19/2016 1:43 PM
[2016-11-19] MEDS ORDERED: NOREPINEPHRINE BIT INJ 8 MG in DEXTROSE 5% 500ML 500 ML IV PRN (13:55)
[2016-11-19] MEDS ORDERED: NURSING VERBAL MED ORDER STA ×2 (13:55→14:28)
[2016-11-19] MEDS ORDERED: SODIUM BICARB 8.4% INJ 50 MEQ/50 ML SYR IV ONE (13:56)
[2016-11-19 13:58] LABS: ISTAT ARTERIAL BLOOD GAS HCO3 25 meq/L (19-24); ISTAT ARTERIAL BLOOD GAS PCO2 78 mmHg (35-46); ISTAT ARTERIAL BLOOD GAS PO2 290 mmHg (80-95); ISTAT CARBON DIOXIDE 28 mEq/l (24-31); ISTAT DELIVERY SYSTEM Ventilator; ISTAT FIO2 100 %; ISTAT PEEP 5; ISTAT RATE 12; ISTAT SITE Art Line; VE 4.7; Vt 450
[2016-11-19] MEDS ORDERED: MIDAZOLAM 125MG/250ML D5W 250 ML IV PRN (13:58)
[2016-11-19] MEDS ORDERED: SODIUM BICARBONATE 8.4% INJ 150 MEQ in DEXTROSE 5% 1000ML 1,000 ML IV SCH (14:00)
[2016-11-19] MEDS ORDERED: MIDAZOLAM 125MG/250ML D5W IV ONE (14:05)
[2016-11-19] MEDS ORDERED: FENTANYL CITRATE INJ 50 MCG/1 ML 2 ML VIAL ONE (14:05)
[2016-11-19] MEDS ORDERED: NOREPINEPHRINE BIT INJ 8 MG in DEXTROSE 5% 500ML 500 ML IV STA (14:11)
[2016-11-19] MEDS ORDERED: INSULIN IV INFUSION PROTOCOL SCH (14:15)
[2016-11-19] MEDS ORDERED: NURSING VERBAL MED ORDER ONE ×3 (14:15→16:30)
--- NOTE | 2016-11-19 14:25 | History and Physical ---
History & Physical Date & Time of Service: Nov 19, 2016 at 12:40 Chief Complaint: Respiratory Failure Primary Care Physician: Dereje Briones D.O. History of Present Illness Source: family, clinic records, hospital records This is a 76 year old female with PMH of CAD s/p RCA stent in 10/2016 at [facility], systolic CHF, history of aortic arch arteritis in 2005, PVD, HTN, COPD, and other problems listed below who was brought to the ED by ambulance for respiratory failure and unresponsiveness. Pt lives locally and f/ w Dr. Briones for primary care. Patient was recently hospitalized in 10/2016 at [facility] ( [facility] while visiting family). As per PCP/s f/u note patient was hospitalized for respiratory failure secondary to pneumonia, CHF, NSTEMI, then readmitted for RCA stent (2.5 weeks ago per sons). Pulmonary consult at OSH ( scanned in Epic) from 10/10/2016 noted acute hypercarbic hypoxemic respiratory failure with severe acidosis with pCO2 over 100 requiring intubation, acute PNA , COPD exacerbation, severe sepsis with lactic acidosis and shock requiring pressors, noted to have right heart strain on EKG at that time. We are working on obtaining further records. Three of her sons (Tray, Garett, Eren) give a history. Patient had been doing well post-stent without chest pains and ambulating up stairs without dyspnea. Pt then developed bilateral upper extremity weakness and RLE pain for which she was seen in the [facility] ER on 11/16. She was started on steroid taper for migratory polyarthralgia per ER note. She was seen in f/u by Dr. Briones and outpatient labs showed ESR of 54. Sons state her weakness and pain improved w/ the steroids. Pt was not having breathing difficulty at Easter dinner yesterday. Son did note leg swelling- unsure which side. Then this morning her son Eren noticed her breathing was labored on the phone. When son arrived she seemed short of breath and 911 was called. After EMS arrived patient became unconscious. She was note to have tight breath sounds. Intubation without sedation was attempted but unsuccessful in the field. In the ED patient was successfully intubated. She was hypotensive requiring dobutamine. She was treated with IV Solu-Medrol and IV Lasix. 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 (2) Atherosclerosis of [place] arteries of extremity with rest pain Status: Chronic (3) Carotid stenosis Status: Chronic (4) COPD, severe Status: Chronic (5) Dyslipidemia Status: Chronic (6) Heart failure, systolic, due to CAD Status: Chronic (7) History of MS (myocardial infarction) Status: Chronic (8) HTN (hypertension) Status: Chronic (9) Mitral regurgitation Status: Chronic (10) Osteoarthritis Status: Chronic (11) Osteoporosis Status: Chronic (12) PVD (peripheral vascular disease) Status: Chronic Surgical Problems: (1) History of procedure for peripheral vascular disease Permanent Comment: 03/16/09- Left iliofemoral endarterectomy with bovine pericardial patch; percutaneous right common iliac stent, oepn left EIA and common iliac artery stents; Dr. Butler Status: Chronic (2) S/P coronary artery stent placement Permanent Comment: 10/2016 at [facility] Status: Chronic Family History Diabetes mellitus SON FH: CAD (coronary artery disease) SISTER FH: CHF (congestive heart failure) FATHER Stroke SON BROTHER Social History Smoking Status: Former Smoker (stopped smoking 1 month ago, had been a lifelong smoker) Alcohol Use: none Housing status: lives with family (with grandson ) Occupational Status: retired Multi-Drug Resistant Organisms History of MDRO: No Allergies Coded Allergies: No Known Allergies (Unverified , 11/19/16) Home Medications Scheduled Amlodipine Besylate (Norvasc), 5 MG PO DAILY Aspirin (Aspirin Ec), 81 MG PO DAILY Atenolol (Tenormin), 25 MG PO Q12 Atorvastatin (Lipitor), 40 MG PO DAILY Clopidogrel (Plavix), 75 MG PO DAILY Fluticasone Prop/Salmeterol (Advair Diskus 250/50 60 Dose), 1 PUFF INH BID Losartan Potassium (Cozaar), 25 MG PO DAILY Prednisone (Prednisone), 10 MG PO UD Tiotropium Lindley (Spiriva Handihaler), 1 CAP INH DAILY Scheduled PRN Albuterol Hfa (Ventolin Hfa), 2 PUFFS INH Q4H PRN for Shortness of Breath Diphenhydramine Hcl (Benadryl Allergy), 1 CAP PO QID PRN for as needed Oxycodone/Acetaminophen 5MG/325MG (Percocet 5MG/325MG), 1 TABLET PO Q6H PRN for Moderate Pain Review of Systems ROS could not be obtained from the patient due to mental status. Son denies fever, URI symptoms, sputum production, N/V/D, dysuria, frequency. Physical Exam Vital Signs Date Time Temp Pulse Resp B/P Pulse Ox O2 Delivery O2 Flow Rate FiO2 11/19/16 12:05 100 11/19/16 11:25 100 11/19/16 10:59 98 Mechanical Ventilator 35 11/19/16 10:49 109 11/19/16 10:37 95 Ambu-Bag 11/19/16 10:37 36.9 112 106/74 95 Ambu-Bag 15.0 Please see attending physician Dr. James's addendum for examination. Diagnostics Laboratory Results Results Past 24 Hours Test 11/19/16 10:35 11/19/16 10:52 11/19/16 10:56 11/19/16 11:22 Range/Units White Blood Count 16.32 4.8-10.8 K/uL Red Blood Count 3.91 4.2-5.4 M/uL Hemoglobin 11.0 12.0-16.0 g/dL Hematocrit 34.0 37-47 % Mean Corpuscular Volume 87.0 80-100 fL Mean Corpuscular Hemoglobin 28.1 25-34 pg Mean Corpuscular Hemoglobin Concent 32.4 32-36 g/dl Platelet Count 432 130-400 K/uL Mean Platelet Volume 8.9 7.4-10.4 fL Neutrophils (%) (Auto) 69.3 % Lymphocytes (%) (Auto) 22.2 % Monocytes (%) (Auto) 7.2 % Eosinophils (%) (Auto) 0.2 % Basophils (%) (Auto) 0.2 % Neutrophils # (Auto) 11.31 1.4-6.5 K/uL Lymphocytes # (Auto) 3.63 1.2-3.4 K/uL Monocytes # (Auto) 1.18 0.11-0.59 K/uL Eosinophils # (Auto) 0.03 0-0.5 K/uL Basophils # (Auto) 0.03 0-0.2 K/uL RDW Standard Deviation 46.7 36.4-46.3 fL RDW Coefficient of Variation 14.7 11.5-14.5 % Immature Granulocyte % (Auto) 0.9 % Immature Granulocyte # (Auto) 0.14 0.00-0.02 K/uL Nucleated RBC Absolute Count (auto) 0.03 0-0 K/uL Nucleated Red Blood Cells % 0.2 % Prothrombin Time 10.5 9.0-12.0 SECONDS Prothromb Time International Ratio 1.0 0.9-1.1 Activated Partial Thromboplast Time 30.1 21.0-31.0 SECONDS Partial Thromboplastin Ratio 1.2 Sodium Level 140 136-145 mmol/L Potassium Level 4.6 3.5-5.1 mmol/L Chloride Level 102 98-107 mmol/L Carbon Dioxide Level 27 21-32 mmol/L Anion Gap 11.0 3-11 mmol/L Blood Urea Nitrogen 32 7-18 mg/dl Creatinine 1.20 0.60-1.20 mg/dl Est Creatinine Clear Calc Drug Dose 37.1 ml/min Estimated GFR () 51.6 Estimated GFR (Non- 44.5 BUN/Creatinine Ratio 26.7 10-20 Random Glucose 323 70-99 mg/dl Calcium Level 8.4 8.5-10.1 mg/dl Magnesium Level 2.6 1.8-2.4 mg/dl Total Bilirubin 0.3 0.2-1 mg/dl Direct Bilirubin 0-0.2 mg/dl Aspartate Amino Transf (AST/SGOT) 20 15-37 U/L Alanine Aminotransferase (ALT/SGPT) 29 12-78 U/L Alkaline Phosphatase 75 45-117 U/L Total Creatine Kinase 65 26-192 U/L Creatine Kinase MB 2.3 0.5-3.6 ng/ml Creatine Kinase MB Ratio 3.5 0-3.0 Total Protein 7.0 6.4-8.2 gm/dl Albumin 3.4 3.4-5.0 gm/dl Lipase 89 73-393 U/L Beta-Hydroxybutyric Acid 1.29 0.2-2.81 mg/dL Chemistry Specimen Hemolysis Bedside Troponin I 0.000 0-0.045 ng/ml XO-[id number]-[id number]-Type Natriuretic Peptide 5302 0-900 pg/ml Bedside Lactic Acid Venous 2.16 0.90-1.70 mmol/L Diagnostic Radiology SINGLE VIEW CHEST CLINICAL HISTORY: Respiratory failure. Intubation. Cardiac arrest. FINDINGS: 2 AP, portable, supine chest radiographs are compared to study dated 11/16/2016. The examination is significantly degraded by portable technique and patient rotation. An endotracheal tube has been placed. The tip projects at the roger and appears to project over the right mainstem bronchus on one of the images. This should be pulled back. The heart is top normal for projection and there is atherosclerotic calcification of the thoracic aorta. Pulmonary vascular congestion is new from previous. Emphysema is suspected. Chronic interstitial thickening is noted. No focal airspace consolidation or large pleural effusion is identified. There is a 2.1 cm nodular density projecting over the right lung base. No pneumothorax is seen. The skeletal structures are osteopenic. The bony thorax is grossly intact. IMPRESSION: 1. An endotracheal tube has been placed. The tip of the catheter projects at the roger and appears to project over the right mainstem bronchus and of the images. This should be pulled back. 2. Pulmonary vascular congestion is new from 11/16/2016. 3. Advanced emphysema. 4. No airspace consolidation or large pleural effusion is identified. 5. A 2.1 cm nodular density projects over the right lung base. This is concerning for neoplasm. Follow-up with a dedicated chest CT is recommended with the patient is clinically able. CT SCAN OF THE BRAIN WITHOUT IV CONTRAST CLINICAL HISTORY: Change in mental status. COMPARISON STUDY: No priors. TECHNIQUE: Unenhanced axial CT scan of the brain is performed from the vertex to the skull base. CT DOSE: 1049.58 mGy.cm FINDINGS: Brain parenchyma: There are age-related involutional changes noting mild subcortical and periventricular microangiopathic change. There is no hemorrhage, mass effect, or evidence of acute territorial ischemia by CT criteria. Marroquin-white matter is preserved. No extra-axial fluid collection is seen. Ventricles, sulci, cisterns: Prominent secondary to involutional change. Intracranial vasculature: There is atherosclerotic calcification of the cavernous carotid and vertebral arteries. Calvarium: Unremarkable. Sinuses and mastoids: The visualized paranasal sinuses are clear. The mastoid air cells are well pneumatized. Orbits: The bony orbits are grossly intact. IMPRESSION: There is no hemorrhage, mass effect, or evidence of acute territorial ischemia by CT criteria. CT ANGIOGRAM OF THE CHEST CLINICAL HISTORY: Dyspnea. COMPARISON STUDY: Chest x-ray dated 11/19/2016. TECHNIQUE: Following the IV administration of 118 cc of Optiray 320, CT angiogram of the chest was performed from the upper abdomen to the thoracic inlet utilizing the pulmonary embolus protocol. Images are reviewed in the axial, sagittal, and coronal planes. 3-D MIPS images are created and assessed. IV contrast was administered without complication. The Examination is degraded by motion artifact, as well as by streak artifact from the patient's arms which could not be elevated above the chest. FINDINGS: Thyroid: Imaged portions of the thyroid gland are normal in size and attenuation. Thoracic aorta: There is advanced atherosclerotic calcification of the thoracic aorta is normal in caliber and demonstrates standard 3-vessel arch anatomy. No dissection is seen. 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 Pulmonary vasculature: The pulmonary trunk is normal in caliber. There are no filling defects identified in main, lobar, or segmental pulmonary branches to suggest pulmonary embolus. Heart: The heart is normal in size and configuration, and without pericardial effusion. The coronary arteries are densely calcified. Lungs and pleural spaces: An endotracheal tube terminates just above the roger. Emphysema is present. There are small pleural effusions with patchy bibasilar airspace consolidation. Patchy airspace opacities are also present in the upper lobes, right greater than left. Diffuse peribronchial thickening is noted. There is also diffuse intralobular septal thickening. A fat-containing Bochdalek hernia is seen at the left lung base. There are scattered calcified granulomas. Mediastinum: There is no mediastinal lymphadenopathy. Alesha: Clear. Axillae: There is no axillary lymphadenopathy. Upper abdomen: Partially visualized upper abdominal viscera is within normal limits. Skeletal structures: The skeletal structures are osteopenic. No lytic or blastic bony lesions are seen. Degenerative change is seen throughout the thoracic spine. Mild compression deformities are noted involving T9 and T12. IMPRESSION: 1. Motion and streak artifact degraded examination. 2. There is no evidence of pulmonary embolus in the main, lobar, or segmental pulmonary arteries. 3. Emphysema. 4. There is diffuse intralobular septal thickening consistent with interstitial edema. 5. Small pleural effusions. 6. There is patchy bibasilar airspace consolidation. Consolidative changes also seen in the upper lobes, right greater than left. Although some of this could be related to pulmonary edema, an infectious/inflammatory pneumonitis is also suspected. Clinical correlation will be required. Radiographic follow-up to resolution is recommended. 7. There is advanced atherosclerotic disease identified. High-grade stenosis is seen in the left subclavian artery. 8. No mass lesion is identified. The density at the right lung base seen by chest x-ray likely corresponds to airspace consolidation. EKG EKG 10:43 am- NSR, 96 bpm, T wave inversion in II, III, aVF, V6- also present on prior EKG on 11/16/16 EKG 12:58- NSR, 96 bpm, inferior T wave inversions persist, V6 T wave abnormality resolved EKG 13:33- NSR, 98 bpm, inferior T wave inversions persist Impression Assessment and Plan Patient seen in collaboration with Dr. James. Please see his addendum for assessment and plan. VTE Prophylaxis VTE Risk Assessment Done? Y/N: Yes Risk Level: Moderate Note ATTENDING ADDENDUM Record reviewed. Patient interviewed and examined. Care coordinated with Laura Schultz PA-C. Please refer to her documentation for patient's history. Briefly, 76 YO female with ischemic heart disease, s/p recent PCI in [place], COPD, and other problems as noted. Seen in ED 3 days prior to admission with arthralgias and prescribed prednisone with improvement. Son called her this morning and she sounds dyspneic on the phone; no apparent chest pain. She appeared to be very SOB when he arrived. EMS summoned. Pt became unresponsive around the time that EMS arrived. Transported to ED and intubated there. Patient was seen by Critical Care Medicine in ED and by the undersigned upon arrival to ICU. EXAM: General- intubated, unresponsive VS- as noted HEENT- anicteric; 7.5 mm oral ETT, 19 cm @ lips Neck- difficult to assess neck veins; trachea midline Lungs- diffuse wheezing, few scattered rhonchi, basilar rales Heart- distant heart sounds, exam limited, RRR, tachy, no murmur, gallop, or rub appreciated Abdomen- quiet BS, nondistended, soft, no palpable masses Extremities- trace pretibial edema, pedal pulses diminished, capillary refill toes ~ 2 sec Neuro- sedated, unresponsive; pupils 2 mm, reactive DATA: Lab studies as noted. CXR # 1 reviewed by the undersigned and interpreted by Radiology. - pulmonary edema, emphysematous changes, calcification aortic arch, tip ETT @ right mainstem bronchus. CXR # 2 reviewed by the undersigned and interpreted by Radiology. - pulmonary edema, emphysematous changes, calcification aortic arch, tip ETT 2 cm above roger, left IJ central line, no pneumothorax. CT head per Radiology: age related changes, no acute process. CTA chest per Radiology: extensive atherosclerotic changes of aorta without apparent dissection, no apparent pulmonary embolism, bilateral patchy infiltrates (pulmonary edema vs pneumonia). EKG performed at 10:[address] at 110 / minute, poor R- wave progression, inverted T-waves II, III, aVF, 1-[address] depression V4-6, biphasic T-waves V5-6. ASSESSMENT AND PLAN: Acute respiratory failure, most likely due to combination of pulmonary edema and underlying COPD. Pulmonary edema probably secondary to acute on chronic left ventricular systolic heart failure. Hypotension- probable cardiogenic shock. History of recent PCI in [place]; records have been requested and are pending. First troponin normal. No ST elevation on EKG. BNP elevated. Most likely that patchy infiltrates on CTA chest secondary to pulmonary edema rather than pneumonia. Procalcitonin pending. Random blood sugar 323 in ED. No apparent history of DM. Glycemic management per protocol. Critical Care Medicine consulted and evaluated patient in ED. Cardiology consulted. Preliminary echo report- segmental wall motion abnormalities with severely reduced LVEF. Family members present and given update. Patient is critically ill. Disposition to be determined. Jacques James MD .
[2016-11-19] MEDS ORDERED: GLUCOSE 10 TABS/TUBE PO PRN (14:30)
[2016-11-19] MEDS ORDERED: INSULIN HUMAN REGULAR IV BOLUS 2 UNIT in SYRINGE 0 ML IV SCH (14:30)
[2016-11-19] MEDS ORDERED: DEXTROSE 50% 50 ML SYR IV PRN (14:30)
[2016-11-19] MEDS ORDERED: GLUCAGON FOR INJ 1 MG VIAL SQ PRN (14:30)
[2016-11-19] MEDS ORDERED: INSULIN REGULAR 250 UNITS in SODIUM CHLORIDE 0.9% 250ML 250 ML IV SCH (14:30)
[2016-11-19] MEDS ORDERED: GLUCOSE 40% GEL 15 GM TUBE PO PRN (14:30)
[2016-11-19] MEDS ORDERED: VASOPRESSIN INJ 50 UNITS in SODIUM CHLORIDE 0.9% 500ML 500 ML IV SCH (14:45)
[2016-11-19] MEDS ORDERED: PNEUMOCOCCAL POLYSACCHARIDES 25 MCG/0.5 ML VIAL/SYR IM. ONE (14:45)
[2016-11-19] MEDS ORDERED: PNEUMOCOCCAL ADMINISTRATION CHARGE ONE (14:45)
--- NOTE | 2016-11-19 15:21 | ECHOCARDIOGRAM REPORT ---
*NOTICE TO RECEIVING [employer] This information is strictly Confidential and protected under [place] law. [place] law prohibits you from making any further disclosure of this information unless further disclosure is expressly permitted by the written consent of the person to whom it pertains or is authorized by law. A general authorization for the release of medical or other information is not sufficient for this purpose. Hospital accepts no responsibility if the information is made available to any other person, INCLUDING THE PATIENT. Interpretation Summary * Name: SARA MORALES Study Date: 11/19/2016 01:07 PM BP: 104/68 mmHg * Patient [facility] HR: 96 * : 1940 (M/d/yyyy) Gender: Female Height: 63 in * Age: 76 yrs Ethnicity: CA Weight: 141 lb * Ordering Physician: DES MADSEN PA-C * Performed By: Mary Anne Rangel RCS * * Reason For Study: CARDIOGENIC SHOCK * BSA: 1.7 m2 * -- Conclusions -- * Mildly dilated LV chamber size with normal wall thickness. * Possible apical ballooning pattern. * Severely reduced LV systolic function. * Severe hypokinesis to akinesis of the entire anterior, anteroseptal, inferior and apical hector. Mild to moderate hypokinesis of the basal and mid anterolateral and inferolateral hector * The right ventricular cavity size is normal (basal dimension <4.2 cm in right ventricular apical 4-chamber view). Normal RV systolic function by TAPSE. * Aortic valve sclerosis moderate, without significant aortic valvular stenosis. * RVSP of 30-40 mmHg. Pt on vent. Procedure Details * A complete two-dimensional transthoracic echocardiogram was performed (2D, M-mode, Doppler and color flow Doppler). * There were technical limitations due to patient'ssupine positioning while on mechanical ventilation * A contrast injection of Definity was performed to improve assessment of LV function. * Contrast was injected into an intravenous site in the right arm. * One vial of Definity ultrasound contrast was diluted in normal saline to a total volume of 10 ml. A total of '2' ml of solution was administered during imaging. * Lot # [id number] of Definity utilized for procedure. * Expiration date SEP 23. * The attending nurse who injected the contrast agent was MEGAN Baker ICU, RN. Left Ventricle * The left ventricle is mildly dilated. * There is no thrombus. * There is normal left ventricular wall thickness. * Left ventricular systolic function is severely reduced. * Ejection Fraction = 20-25%. * Severe hypokinesis to akinesis of the entire anterior, anteroseptal, inferior and apical hector. Mild to moderate hypokinesis of the basal and mid anterolateral and inferolateral hector Right Ventricle * The right ventricular cavity size is normal (basal dimension <4.2 cm in right ventricular apical 4-chamber view). * The right ventricular systolic function is normal as assessed by tricuspid annular plane systolic excursion (TAPSE) (normal >1.5 cm). Atria * The left atrial size is normal. * Right atrial size is normal. * No ASD detected; PFO is not assessed. Mitral Valve * There is moderate mitral annular calcification. * There is no mitral valve stenosis. * There is mild mitral regurgitation. Tricuspid Valve * The tricuspid valve anatomy is normal. * There is no tricuspid stenosis. * There is moderate tricuspid regurgitation. Aortic Valve * The aortic valve is not well visualized. * Aortic valve sclerosis moderate, without significant aortic valvular stenosis. * There is no significant aortic regurgitation. Pulmonic Valve * The pulmonary valve is not well seen, but the Doppler examination is normal without significant regurgitation or stenosis. Great Vessels * The aortic root is normal size. Pericardium/Pleural * There is no pericardial effusion. Left Ventricular Diastolic Function * Diastolic dysfunction, Grade II (pseudonormalization pattern). MMode 2D Measurements and Calculations IVSd 1.1 cm IVSs 1.6 cm LVIDd 4.4 cm LVIDs 3.8 cm LVPWd 0.86 cm LVPWs 0.96 cm IVS/LVPW 1.3 FS 14.7 % EDV(Teich) 89.8 ml ESV(Teich) 61.7 ml EF(Teich) 31.3 % EDV(cubed) 87.8 ml ESV(cubed) 54.6 ml EF(cubed) 37.8 % % IVS thick 38.0 % % LVPW thick 11.8 % LV mass(C)d 150.7 grams LV mass(C)dI 90.4 grams/m\S\2 LV mass(C)s 166.7 grams LV mass(C)sI 100.0 grams/m\S\2 SV(Teich) 28.1 ml SI(Teich) 16.9 ml/m\S\2 SV(cubed) 33.2 ml SI(cubed) 19.9 ml/m\S\2 Ao root diam 3.1 cm Ao root area 7.5 cm\S\2 ACS 1.4 cm LA dimension 2.5 cm LA/Ao 0.82 LVOT diam 1.9 cm LVOT area 2.9 cm\S\2 LVAd ap4 26.4 cm\S\2 LVLd ap4 7.1 cm EDV(MOD-sp4) 80.5 ml EDV(sp4-el) 82.7 ml LVAs ap4 19.3 cm\S\2 LVLs ap4 6.4 cm ESV(MOD-sp4) 47.6 ml ESV(sp4-el) 49.4 ml EF(MOD-sp4) 40.9 % EF(sp4-el) 40.3 % LVAd ap2 27.9 cm\S\2 LVLd ap2 7.0 cm EDV(MOD-sp2) 90.8 ml EDV(sp2-el) 94.1 ml LVAs ap2 21.0 cm\S\2 LVLs ap2 6.2 cm ESV(MOD-sp2) 58.3 ml ESV(sp2-el) 60.6 ml EF(MOD-sp2) 35.8 % EF(sp2-el) 35.6 % LVLd %diff -1.34 % EDV(MOD-bp) 85.2 ml LVLs %diff -3.58 % ESV(MOD-bp) 53.4 ml EF(MOD-bp) 37.3 % SV(MOD-sp4) 32.9 ml SI(MOD-sp4) 19.7 ml/m\S\2 SV(MOD-sp2) 32.5 ml SI(MOD-sp2) 19.5 ml/m\S\2 SV(MOD-bp) 31.8 ml SI(MOD-bp) 19.1 ml/m\S\2 SV(sp4-el) 33.3 ml SI(sp4-el) 20.0 ml/m\S\2 SV(sp2-el) 33.5 ml SI(sp2-el) 20.1 ml/m\S\2 Doppler Measurements and Calculations MV E max higinio 111.1 cm/sec MV A max higinio 31.3 cm/sec MV E/A 3.6 MV P1/2t max higinio 132.9 cm/sec MV P1/2t 50.5 msec MVA(P1/2t) 4.4 cm\S\2 MV dec slope 770.6 cm/sec\S\2 MV dec time 0.17 sec MR max higinio 511.1 cm/sec MR max PG 104.5 mmHg PA V2 max 139.8 cm/sec PA max PG 7.8 mmHg TR max higinio 281.0 cm/sec
[2016-11-19] MEDS ORDERED: MIDAZOLAM HCL 5 MG/ML 1 ML VIAL ONE (16:16)
--- NOTE | 2016-11-19 16:46 | CARDIOLOGY CONSULTATION ---
DATE OF CONSULTATION: 11/19/2016 INPATIENT EMERGENT CONSULTATION CONSULTATION REQUESTED BY: Dr. James and Dr. Guo. REASON FOR CONSULTATION: Possible cardiogenic shock. HISTORY OF PRESENT ILLNESS: Mrs. Martinez is a very pleasant but very medically complex 76-year-old woman who presented to [facility] on 11/19/2016 with a report of shortness of breath. The patient is currently intubated. The history was obtained through review of medical records that we do have, and discussion with the family. Apparently, the patient spoke on the phone to her son today. She sounded short of breath. The son went to visit her and upon arrival, she was working very hard to breathe. At that time, EMS was called and at that moment, she started to deteriorate quickly. Upon EMS's arrival, intubation was attempted, however unsuccessful. She was then transported emergently to [facility] Emergency Department. In the Emergency Department, the patient was successfully intubated. CTA of the chest was performed which ruled out PE but did show emphysematous changes, diffuse interlobar thickening consistent with interstitial edema, small pleural effusions bilaterally, patchy bibasilar airspace consolidation, advanced atherosclerotic disease and high-grade stenosis of the left subclavian. The patient was initiated on dobutamine for support and a stat echocardiogram was ordered. The patient was then transported to the intensive care unit. The echocardiogram was performed in the intensive care unit. I was notified of the patient's arrival and clinical status and was at the bedside within approximately 20 minutes. Echocardiogram was reviewed at the bedside. Of note, the patient has a recent cardiac history. The patient's son relates that approximately 5 weeks ago, while he was visiting her in the [facility], she became short of breath and diaphoretic and she was taken to a local hospital, [facility], at that time. She was placed on a ventilator at that time but also underwent cardiac catheterization which he believes revealed an RCA chronic total occlusion along with 50% stenosis of the LAD. The patient was then recovered medically and discharged to home. She underwent a viability study which he believes showed viability in the RCA distribution and then went in for COURIER intervention and received 2 stents, unknown types to the RCA. No intervention was performed on the LAD at that point. Reportedly, the patient was then doing relatively well afterwards and went back to her home in the area. Of note, she did reportedly develop a peripheral rash a few weeks after the intervention. The only new medications after the intervention were Plavix and Imdur and her Imdur was discontinued and she was placed on medications for the rash including steroids but they are not sure if the rash actually improved. Otherwise, the family reports that she has been compliant with her medications including her aspirin and Plavix since the intervention. Of note, no cardiac records are available to me at this time. The patient has never been seen by [facility] in the past. She is scheduled in the future. Unfortunately, no records from her hospitalization at [facility] except for a motel manager consultation are available to me at this time. All other [facility] records were reviewed and taken into consideration during the consultation. PAST SURGICAL HISTORY: 1. Left iliofemoral endarterectomy with pericardial patch 2008, percutaneous intervention to the right common iliac with stent and open left EIA and common iliac artery stents in 2008. 2. Colonoscopy. 3. Recent cardiac catheterization with intervention on an RCA COURIER with 2 stents, unknown types. MEDICAL ILLNESSES: 1. Severe peripheral vascular disease. 2. Carotid occlusive disease. 3. History of tobacco abuse. 4. History of arteritis. 5. Coronary artery disease status post intervention of a right COURIER. 6. Hypertension. 7. Vasculitis. 8. Tobacco abuse. 9. Severe COPD. FAMILY HISTORY: Noncontributory. SOCIAL HISTORY: The patient is a former long-term smoker. Denied any alcohol or recreational drug use. She is, I believe, with 4 sons who are at the bedside. REVIEW OF SYSTEMS: Unobtainable, given the patient's current clinical status. ALLERGIES: No known drug allergies. MEDICATIONS AN OUTPATIENT: 1. Aspirin 81 mg daily. 2. Plavix 75 mg daily. 3. Atenolol 25 mg b.i.d. 4. Losartan 25 mg daily. 5. Atorvastatin 40 mg daily. 6. Amlodipine 5 mg daily. 7. Advair Diskus. 8. Spiriva. 9. Benadryl. 10. Prednisone taper. 11. Percocet. PHYSICAL EXAMINATION: VITALS: Temperature is 34.3, pulse 120, respiratory rate 16, blood pressure 90/62. GENERAL: Is intubated, unresponsive, currently sedated. HEENT: Normocephalic, atraumatic. Endotracheal tube in place. NECK: No JVD, no bruit. CARDIOVASCULAR: Regular but distant. Positive S4. Normal S1 and S2. No S3. Slight 2/6 mid to late systolic ejection murmur greatest at the right sternal border, second intercostal space. No rubs. PULMONARY: Poor air movement bilaterally. No rales, rhonchi, or wheezing. ABDOMEN: Bowel sounds x4, soft. No rebound, guarding, tenderness. No organomegaly. Questionable bruit. EXTREMITIES: No clubbing, cyanosis or edema. Barely palpable pedal pulses bilaterally. SKIN: Cool and dry. TEST RESULTS: A 12-lead EKG performed in the Emergency Department independently reviewed at this time shows sinus tachycardia 108 beats per minute, inverted T waves in the inferior leads, ST segment depressions in the lateral leads. No signs of ST segment elevations. LABORATORY STUDIES OF SIGNIFICANCE: White count 16.3, hemoglobin 11, platelet count 432. Sodium 140, potassium 4.6, BUN 32, creatinine 1.2. CPK of 65. Troponin of 0. ProBNP of 5300. CTA of the chest as above. Bedside echocardiogram preliminary report: Mild LV chamber dilatation, severely reduced LV systolic function, EF approximately 15-20% with severe hypokinesis to akinesis of all segments except for the basal and mid anterior lateral segments. Pulmonary hypertension is present, moderate tricuspid regurgitation. IMPRESSION: 1. Likely cardiogenic shock. 2. Vent dependent respiratory failure. 3. History of coronary artery disease. 4. Severe reduced left ventricular systolic function. 5. Pulmonary hypertension. 6. History of chronic obstructive pulmonary disease. 7. Severe peripheral vascular disease including left subclavian stenosis, carotid occlusive disease and iliofemoral bypass surgery along with lower extremity PCIs. RECOMMENDATIONS: It is my pleasure to see Ms. Martinez in consultation today. Given the current clinical context, the patient's outcome is grim. This has been discussed at great length with the patient's family. In regards to her cardiac status, from what I can piece together, it sounds as though her severely reduced LV systolic function is likely new, given the fact that they were not offered ICD therapy or LifeVest at her cardiac catheterization. Again, unfortunately reports are not available to me at this time. Given the wall motion pattern, the options would be either significant left main occlusion, LV failure due to RV failure or catecholamine induced cardiomyopathy. The sons were counseled that the best way to evaluate this would be to first undergo diagnostic cardiac catheterization. Unfortunately, given her hemodynamic collapse, we are unable to perform that here at [facility]. Given her severe peripheral vascular disease, I do not believe access for a balloon pump would be possible here either and unfortunately, we do not have any other mechanical support options available to us here at this facility. So at this point, Levophed has been added to her pressors that were started by the critical care team. She is currently on dobutamine, which given the fact that there is no objective finding of ischemia at this point, I believe is acceptable. She is already on epinephrine, norepinephrine will be substituted and further support will be discussed with the critical care team. Otherwise I do not see any role for heparin at this point. After lengthy discussion with the family, it was advised that the patient will likely require ECMO support. Given the current clinical context, the closest facility with availability for ECMO support is [facility]. Dr. Guo has facilitated transport and acceptance at that facility and obviously I agree with this. Again, no further intervention is either possible at this point from my standpoint, nor do I want to undertake any at this point that would possibly delay her transport. Again, family is aware of above. Thank you very much for allowing me to participate in the care of your patient. Time spent in direct patient contact, consultation with critical care team and discussion with the family approximately 100 minutes. BEATRIZ
[2016-11-19] MEDS ORDERED: [UNRECOGNIZED DRUG - REMARK] SCH (17:00)
[2016-11-19] MEDS ORDERED: INSULIN ASPART 100 UNITS/ML 3 ML PEN SC SCH (17:15)
--- NOTE | 2016-11-19 18:05 | Discharge Summary ---
Discharge Summary Date of Service Nov 19, 2016. Discharge Summary Admission Date: Nov 19, 2016 at 11:46 Discharge Date: Nov 19, 2016 Discharge Disposition: Acute care facility ([facility]) Principal Diagnosis: cardiogenic shock pulmonary edema acute on chronic left ventricular systolic heart failure acute respiratory failure mixed respiratory + metabolic acidosis . 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 Status: Chronic (3) Carotid stenosis Status: Chronic (4) COPD, severe Status: Chronic (5) Dyslipidemia Status: Chronic (6) Heart failure, systolic, due to CAD Status: Chronic (7) History of LA (myocardial infarction) Status: Chronic (8) HTN (hypertension) Status: Chronic (9) Mitral regurgitation Status: Chronic (10) Osteoarthritis Status: Chronic (11) Osteoporosis Status: Chronic (12) PVD (peripheral vascular disease) Status: Chronic Surgical Problems: (1) History of procedure for peripheral vascular disease Permanent Comment: 03/16/09- Left iliofemoral endarterectomy with bovine pericardial patch; percutaneous right common iliac stent, oepn left EIA and common iliac artery stents; Dr. Butler Status: Chronic (2) S/P coronary artery stent placement Permanent Comment: 10/2016 at [facility] Status: Chronic . Procedures: cardiac monitoring endotracheal intubation mechanical ventilation left IJ central venous catheter transthoracic echo CT head CTA chest IV meds . Admission Information HPI (per Admitting provider): This is a 76 year old female with PMH of CAD s/p RCA stent in 10/2016 at [facility], systolic CHF, history of aortic arch arteritis in 2006, PVD, HTN, COPD, and other problems listed below who was brought to the ED by ambulance for respiratory failure and unresponsiveness. Pt lives locally and f/ w Dr. Briones for primary care. Patient was recently hospitalized in 10/2016 at [facility] ( [facility] while visiting family). As per PCP/s f/u note patient was hospitalized for respiratory failure secondary to pneumonia, CHF, NSTEMI, then readmitted for RCA stent (2.5 weeks ago per sons). Pulmonary consult at [facility]SH ( [facility] in [facility]) from 10/10/2016 noted acute hypercarbic hypoxemic respiratory failure with severe acidosis with pCO2 over 100 requiring intubation, acute PNA , COPD exacerbation, severe sepsis with lactic acidosis and shock requiring pressors, noted to have right heart strain on EKG at that time. We are working on obtaining further records. Three of her sons (Tray, Garett, Eren) give a history. Patient had been doing well post-stent without chest pains and ambulating up stairs without dyspnea. Pt then developed bilateral upper extremity weakness and RLE pain for which she was seen in the [facility] ER on 11/16. She was started on steroid taper for migratory polyarthralgia per ER note. She was seen in f/u by Dr. Briones and outpatient labs showed ESR of 54. Sons state her weakness and pain improved w/ the steroids. Pt was not having breathing difficulty at [place] yesterday. Son did note leg swelling- unsure which side. Then this morning her son Eren noticed her breathing was labored on the phone. When son arrived she seemed short of breath and 911 was called. After EMS arrived patient became unconscious. She was note to have tight breath sounds. Intubation without sedation was attempted but unsuccessful in the field. In the ED patient was successfully intubated. She was hypotensive requiring dobutamine. She was treated with IV Solu-Medrol and IV Lasix. . Physical Exam (per Admitting): General- intubated, unresponsive VS- as noted HEENT- anicteric; 7.5 mm oral ETT, 19 cm @ lips Neck- difficult to assess neck veins; trachea midline Lungs- diffuse wheezing, few scattered rhonchi, basilar rales Heart- distant heart sounds, exam limited, RRR, tachy, no murmur, gallop, or rub appreciated Abdomen- quiet BS, nondistended, soft, no palpable masses Extremities- trace pretibial edema, pedal pulses diminished, capillary refill toes ~ 2 sec Neuro- sedated, unresponsive; pupils 2 mm, reactive . Hospital Course 76 YO female with ischemic heart disease, COPD, and other problems as noted. Acute onset SOB morning of admission, no apparent chest pain, no apparent fever. Became unresponsive about the time that EMS arrived. Transported to ED and intubated there. Critical Care Medicine and Cardiology consulted. Chest x-ray showed pulmonary edema, underlying COPD. CTA negative for pulmonary embolism or aortic dissection. Troponin I normal. EKG showed sinus tachycardia with nonspecific ST and T-wave changes as noted; did not meet criteria for STEMI. BNP elevated. Echo (prelim report) demonstrated wall motion abnormalities with overall LVEF ~ 15 - 20%. WBC 16,000 and serum lactate 2.16, but normal procalcitonin made sepsis unlikely. Hypotensive despite pressor support with multiple pressors. [place] not to be a candidate for emergent cardiac cath at this facility due to absence of CT Surgery backup. Tertiary care felt to be most appropriate given her critical illness and likely need for advanced cardiovascular services. [facility] contacted and arrangements made for transfer via [employer]. . Discharge Instructions N/A . Additional Copies To Dereje Briones D.O.
[2016-11-19] MEDS ORDERED: SUCCINYLCHOLINE CHLORIDE 20 MG/ML 10 ML VIAL IV ONE (18:09)
[2016-11-19] MEDS ORDERED: MIDAZOLAM HCL 5 MG/ML 2ML VIAL IV ONE (18:09)
[2016-11-19] MEDS ORDERED: FENTANYL CITRATE INJ 50 MCG/1 ML 2 ML VIAL IV ONE (18:09)
[2016-11-19] MEDS ORDERED: ETOMIDATE 2 MG/ML 20 ML VIAL IV ONE (18:09)
[2016-11-19] MEDS ORDERED: ROCURONIUM BROMIDE 10 MG/ML 10 ML VIAL IV ONE (18:09)
--- NOTE | 2016-11-19 18:37 | EMERGENCY ROOM VISIT NOTE ---
History Report prepared by Donna: Douglas Doll Under the Supervision of: Dr. Jacques Lopez M.D. First contact with patient: 10:26 Stated Complaint: RESPIRATORY ARREST History of Present Illness The patient is a 72 year old female who presents to the Emergency Room with complaints of acute respiratory failure that started just prior to arrival. Per EMS, the patient was complaining of shortness of breath this morning. Her family found her in respiratory distress and called an ambulance. The patient was unresponsive upon ALS arrival. EMS assisted her ventilation. Intubation was attempted one time in the field but this was unsuccessful. The patient was able to be ventilated with a bag valve mask. EMS called for medical command and I instructed them to continue ventilation as they had a good pulse oximetry with assisted BVM and they had a less than 10 minute ETA. The patient had an MA recently and had coronary stents placed 2.5 weeks ago, per family at [facility] in [place]. The patient was also seen in the emergency department for arthritis several days ago. Complete history is limited secondary to unresponsiveness. 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 Past Medical & Surgical Medical Problems: (1) Aortic arch arteritis (2) Atherosclerosis of [place] arteries of extremity with rest pain (3) Carotid stenosis (4) COPD, severe (5) Dyslipidemia (6) Heart failure, systolic, due to CAD (7) History of MA (myocardial infarction) (8) HTN (hypertension) (9) Mitral regurgitation (10) Osteoarthritis (11) Osteoporosis (12) PVD (peripheral vascular disease) (13) Respiratory failure Surgical Problems: (1) History of procedure for peripheral vascular disease (2) S/P coronary artery stent placement Family History Patient reports no known family medical history. Social History Housing Status: lives with family Current/Historical Medications Scheduled Amlodipine Besylate (Norvasc), 5 MG PO DAILY Aspirin (Aspirin Ec), 81 MG PO DAILY Atenolol (Tenormin), 25 MG PO Q12 Atorvastatin (Lipitor), 40 MG PO DAILY Clopidogrel (Plavix), 75 MG PO DAILY Fluticasone Prop/Salmeterol (Advair Diskus 250/50 60 Dose), 1 PUFF INH BID Losartan Potassium (Cozaar), 25 MG PO DAILY Prednisone (Prednisone), 10 MG PO UD Tiotropium Tijeras (Spiriva Handihaler), 1 CAP INH DAILY Scheduled PRN Albuterol Hfa (Ventolin Hfa), 2 PUFFS INH Q4H PRN for Shortness of Breath Diphenhydramine Hcl (Benadryl Allergy), 1 CAP PO QID PRN for as needed Oxycodone/Acetaminophen 5MG/325MG (Percocet 5MG/325MG), 1 TABLET PO Q6H PRN for Moderate Pain Allergies Coded Allergies: No Known Allergies (Unverified , 11/19/16) Physical Exam Vital Signs Date Time Temp Pulse Resp B/P Pulse Ox O2 Delivery O2 Flow Rate FiO2 11/19/16 11:25 100 11/19/16 11:10 102 18 104/68 98 Room Air 11/19/16 10:59 98 Mechanical Ventilator 35 11/19/16 10:49 109 11/19/16 10:37 95 Ambu-Bag 11/19/16 10:37 36.9 112 106/74 95 Ambu-Bag 15.0 Physical Exam GENERAL: Obtunded, agonal breathing, in severe distress. HENT: Normocephalic, atraumatic. Oropharynx unremarkable. EYES: Eyes open But not tracking Normal conjunctiva. Sclera non-icteric. PERRL NECK: Supple. No nuchal rigidity. FROM. Mild JVD. RESPIRATORY: Diminished breath sounds bilaterally with poor air movement. CARDIAC: Tachycardic, normal rhythm. Extremities warm and well perfused. Pulses equal. ABDOMEN: Soft, non-distended. No masses. RECTAL: Deferred. MUSCULOSKELETAL: Atraumatic. No joint edema. LOWER EXTREMITIES: 1+ edema bilaterally. No discoloration. NEURO: GCS 6. Altered sensorium. Not moving her upper or lower extremities. Unable to follow commands for neurologic testing. SKIN: No rash or jaundice noted. Medical Decision & Procedures ER Provider Diagnostic Interpretation: X ray results as stated below per my interpretation and radiologist interpretation. Other radiology results as stated below per my review and radiologist interpretation SINGLE VIEW CHEST CLINICAL HISTORY: Respiratory failure. Intubation. Cardiac arrest. FINDINGS: 2 AP, portable, supine chest radiographs are compared to study dated 11/16/2016. The examination is significantly degraded by portable technique and patient rotation. An endotracheal tube has been placed. The tip projects at the roger and appears to project over the right mainstem bronchus on one of the images. This should be pulled back. The heart is top normal for projection and there is atherosclerotic calcification of the thoracic aorta. Pulmonary vascular congestion is new from previous. Emphysema is suspected. Chronic interstitial thickening is noted. No focal airspace consolidation or large pleural effusion is identified. There is a 2.1 cm nodular density projecting over the right lung base. No pneumothorax is seen. The skeletal structures are osteopenic. The bony thorax is grossly intact. IMPRESSION: 1. An endotracheal tube has been placed. The tip of the catheter projects at the roger and appears to project over the right mainstem bronchus and of the images. This should be pulled back. 2. Pulmonary vascular congestion is new from 11/16/2016. 3. Advanced emphysema. 4. No airspace consolidation or large pleural effusion is identified. 5. A 2.1 cm nodular density projects over the right lung base. This is concerning for neoplasm. Follow-up with a dedicated chest CT is recommended with the patient is clinically able. Electronically signed by: Raf Francois M.D. 11/19/2016 11:16 AM Dictated Date/Time: 11/19/2016 11:[address] ANGIOGRAM OF THE CHEST CLINICAL HISTORY: Dyspnea. COMPARISON STUDY: Chest x-ray dated 11/19/2016. TECHNIQUE: Following the IV administration of 118 cc of Optiray 320, CT angiogram of the chest was performed from the upper abdomen to the thoracic inlet utilizing the pulmonary embolus protocol. Images are reviewed in the axial, sagittal, and coronal planes. 3-D MIPS images are created and assessed. IV contrast was administered without complication. The Examination is degraded by motion artifact, as well as by streak artifact from the patient's arms which could not be elevated above the chest. FINDINGS: Thyroid: Imaged portions of the thyroid gland are normal in size and attenuation. Thoracic aorta: There is advanced atherosclerotic calcification of the thoracic aorta is normal in caliber and demonstrates standard 3-vessel arch anatomy. No dissection is seen. 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 Pulmonary vasculature: The pulmonary trunk is normal in caliber. There are no filling defects identified in main, lobar, or segmental pulmonary branches to suggest pulmonary embolus. Heart: The heart is normal in size and configuration, and without pericardial effusion. The coronary arteries are densely calcified. Lungs and pleural spaces: An endotracheal tube terminates just above the roger. Emphysema is present. There are small pleural effusions with patchy bibasilar airspace consolidation. Patchy airspace opacities are also present in the upper lobes, right greater than left. Diffuse peribronchial thickening is noted. There is also diffuse intralobular septal thickening. A fat-containing Bochdalek hernia is seen at the left lung base. There are scattered calcified granulomas. Mediastinum: There is no mediastinal lymphadenopathy. Alesha: Clear. Axillae: There is no axillary lymphadenopathy. Upper abdomen: Partially visualized upper abdominal viscera is within normal limits. Skeletal structures: The skeletal structures are osteopenic. No lytic or blastic bony lesions are seen. Degenerative change is seen throughout the thoracic spine. Mild compression deformities are noted involving T9 and T12. IMPRESSION: 1. Motion and streak artifact degraded examination. 2. There is no evidence of pulmonary embolus in the main, lobar, or segmental pulmonary arteries. 3. Emphysema. 4. There is diffuse intralobular septal thickening consistent with interstitial edema. 5. Small pleural effusions. 6. There is patchy bibasilar airspace consolidation. Consolidative changes also seen in the upper lobes, right greater than left. Although some of this could be related to pulmonary edema, an infectious/inflammatory pneumonitis is also suspected. Clinical correlation will be required. Radiographic follow-up to resolution is recommended. 7. There is advanced atherosclerotic disease identified. High-grade stenosis is seen in the left subclavian artery. 8. No mass lesion is identified. The density at the right lung base seen by chest x-ray likely corresponds to airspace consolidation. Electronically signed by: Raf Francois M.D. 11/19/2016 12:13 PM Dictated Date/Time: 11/19/2016 12:[address] SCAN OF THE BRAIN WITHOUT IV CONTRAST CLINICAL HISTORY: Change in mental status. COMPARISON STUDY: No priors. TECHNIQUE: Unenhanced axial CT scan of the brain is performed from the vertex to the skull base. CT DOSE: 1049.58 mGy.cm FINDINGS: Brain parenchyma: There are age-related involutional changes noting mild subcortical and periventricular microangiopathic change. There is no hemorrhage, mass effect, or evidence of acute territorial ischemia by CT criteria. Marroquin-white matter is preserved. No extra-axial fluid collection is seen. Ventricles, sulci, cisterns: Prominent secondary to involutional change. Intracranial vasculature: There is atherosclerotic calcification of the cavernous carotid and vertebral arteries. Calvarium: Unremarkable. Sinuses and mastoids: The visualized paranasal sinuses are clear. The mastoid air cells are well pneumatized. Orbits: The bony orbits are grossly intact. IMPRESSION: There is no hemorrhage, mass effect, or evidence of acute territorial ischemia by CT criteria. Electronically signed by: Raf Francois M.D. 11/19/2016 12:05 PM Dictated Date/Time: 11/19/2016 12:03 PM Laboratory Results 11/19/16 10:35 Red Blood Count 3.91, Mean Corpuscular Volume 87.0, Mean Corpuscular Hemoglobin 28.1, Mean Corpuscular Hemoglobin Concent 32.4, Mean Platelet Volume 8.9, Neutrophils (%) (Auto) 69.3, Lymphocytes (%) (Auto) 22.2, Monocytes (%) (Auto) 7.2, Eosinophils (%) (Auto) 0.2, Basophils (%) (Auto) 0.2, Neutrophils # (Auto) 11.31, Lymphocytes # (Auto) 3.63, Monocytes # (Auto) 1.18, Eosinophils # (Auto) 0.03, Basophils # (Auto) 0.03 11/19/16 10:35 Test 11/19/16 10:35 11/19/16 10:56 11/19/16 11:22 White Blood Count 16.32 K/uL (4.8-10.8) Red Blood Count 3.91 M/uL (4.2-5.4) Hemoglobin 11.0 g/dL (12.0-16.0) Hematocrit 34.0 % (37-47) Mean Corpuscular Volume 87.0 fL (80-100) Mean Corpuscular Hemoglobin 28.1 pg (25-34) Mean Corpuscular Hemoglobin Concent 32.4 g/dl (32-36) Platelet Count 432 K/uL (130-400) Mean Platelet Volume 8.9 fL (7.4-10.4) Neutrophils (%) (Auto) 69.3 % Lymphocytes (%) (Auto) 22.2 % Monocytes (%) (Auto) 7.2 % Eosinophils (%) (Auto) 0.2 % Basophils (%) (Auto) 0.2 % Neutrophils # (Auto) 11.31 K/uL (1.4-6.5) Lymphocytes # (Auto) 3.63 K/uL (1.2-3.4) Monocytes # (Auto) 1.18 K/uL (0.11-0.59) Eosinophils # (Auto) 0.03 K/uL (0-0.5) Basophils # (Auto) 0.03 K/uL (0-0.2) RDW Standard Deviation 46.7 fL (36.4-46.3) RDW Coefficient of Variation 14.7 % (11.5-14.5) Immature Granulocyte % (Auto) 0.9 % Immature Granulocyte # (Auto) 0.14 K/uL (0.00-0.02) Nucleated RBC Absolute Count (auto) 0.03 K/uL (0-0) Nucleated Red Blood Cells % 0.2 % Prothrombin Time 10.5 SECONDS (9.0-12.0) Prothromb Time International Ratio 1.0 (0.9-1.1) Activated Partial Thromboplast Time 30.1 SECONDS (21.0-31.0) Partial Thromboplastin Ratio 1.2 Anion Gap 11.0 mmol/L (3-11) Est Creatinine Clear Calc Drug Dose 37.1 ml/min Estimated GFR () 51.6 Estimated GFR (Non- 44.5 BUN/Creatinine Ratio 26.7 (10-20) Calcium Level 8.4 mg/dl (8.5-10.1) Magnesium Level 2.6 mg/dl (1.8-2.4) Total Bilirubin 0.3 mg/dl (0.2-1) Direct Bilirubin mg/dl (0-0.2) Aspartate Amino Transf (AST/SGOT) 20 U/L (15-37) Alanine Aminotransferase (ALT/SGPT) 29 U/L (12-78) Alkaline Phosphatase 75 U/L (45-117) Total Creatine Kinase 65 U/L (26-192) Creatine Kinase MB 2.3 ng/ml (0.5-3.6) Creatine Kinase MB Ratio 3.5 (0-3.0) Total Protein 7.0 gm/dl (6.4-8.2) Albumin 3.4 gm/dl (3.4-5.0) Lipase 89 U/L (73-393) Beta-Hydroxybutyric Acid 1.29 mg/dL (0.2-2.81) Chemistry Specimen Hemolysis Bedside Troponin I 0.000 ng/ml (0-0.045) [id number]-Zlx-[id number]-Type Natriuretic Peptide 5302 pg/ml (0-900) Bedside Lactic Acid Venous 2.16 mmol/L (0.90-1.70) Laboratory results reviewed by me Medications Administered Medications (Trade) Dose Ordered Sig/Alcira Route Start Time Stop Time Status Last Admin Dose Admin Magnesium Sulfate (Magnesium Sulfate) 2 gm STK-MED ONCE .ROUTE 11/19/16 10:56 11/19/16 10:57 DC 11/19/16 11:12 2 GM Albuterol/ Ipratropium 12 ml 12 ml STK-MED ONCE .ROUTE 11/19/16 10:59 11/19/16 11:00 DC 11/19/16 11:25 12 ML Sodium Chloride (Nss 1000ml) 1,000 ml @ 999 mls/hr Q1H1M STAT IV 11/19/16 10:52 11/19/16 11:52 DC 11/19/16 11:07 999 MLS/HR Methylprednisolone Sodium Succinate (Solu-Medrol IV) 125 mg NOW STAT IV 11/19/16 10:52 11/19/16 10:54 DC 11/19/16 11:09 125 MG Midazolam HCl (Versed Inj) 2 mg Q5M PRN IV 11/19/16 11:15 11/19/16 13:21 DC 11/19/16 10:45 2 MG Fentanyl Citrate (Fentanyl Inj) 100 mcg NOW STAT IV 11/19/16 11:08 11/19/16 11:12 DC 11/19/16 10:45 100 MCG Rocuronium Tijeras (Zemuron Inj) 50 mg NOW STAT IV 11/19/16 11:08 11/19/16 11:12 DC 11/19/16 10:31 50 MG Furosemide (Lasix Inj) 80 mg STK-MED ONCE .ROUTE 11/19/16 11:18 11/19/16 11:19 DC 11/19/16 11:28 80 MG Dobutamine HCl (DOBUTamine / D5W) 500 mg STK-MED ONCE .ROUTE 11/19/16 11:19 11/19/16 11:20 DC 11/19/16 11:20 500 MG Etomidate (Amidate Inj) 20 mg 1120 STAT IV 11/19/16 11:20 11/19/16 12:42 DC 11/19/16 10:31 20 MG Procedure Endotracheal Intubation Indication: Respiratory failure. The patient was on 100% oxygen via BVM prior to the procedure. Suction, airway equipment, RSI drugs, respiratory equipment, and appropriate personnel were prepared prior to the initiation of the procedure. A time out was taken. Induction was performed with rocuronium and Etomidate. After observing the clinical benefit of the medications, the airway was easily visualized utilizing a GlideScope. A 7.5 size ETT tube was placed atraumatically to 23 cm using standard technique. The cuff inflated without signs of malfunction. There were bilateral coarse breath sounds, positive colormetric change, no gastric sounds, and post procedure pulse oximetry was 97%. Post intubation sedation was administered using fentanyl and versed. There were no complications. There was some difficulty ventilating the patient once she was placed on the ventilator. He was noted that the tube had migrated slightly in. Chest x-ray showed the tube to be close to the right mainstem. The tube was backed out to 22 cm after Chest X-ray was obtained. ECG Indication: SOB/dyspnea Rate (beats per minute): 108 Rhythm: sinus tachycardia Findings: Q waves (Septal), T-wave inversion (Inferior), ST elevation (slight, V2 only) Change: V2 ST elevation slightly more pronounced compared to EKG dated 16 November 2016. ED Course 1026: The patient was evaluated in room B1. A complete history and physical exam was performed. Critical care was paged prior to patient's arrival. 1027: Dr. Guo, Costume Shop Manager, at bedside. Patient noted to be in respiratory failure. Patient being bagged. Respiratory at the bedside assisting. Patient prepped for intubation. 1032: Endotracheal intubation performed. The patient was given 50 mg of rocuronium and 20 mg of etomidate Please see procedural note above. 1052: Solu-Medrol 125 mg IV, NSS 1000 ml @ 999 mls/hr. 1100: DuoNeb 12 ml INH. 1108: Fentanyl 100 mcg IV and Versed 2 mg IV given for post intubation sedation 1115: Fentanyl 50 mcg IV, Versed 2 mg IV ordered when necessary for post intubation sedation for comfort. 1120: Updated the patient's family. 1128: Discussed the case with Vilma Schultz PA-C, [facility] Hospitalist. She is aware. 1134: The family was updated and is now at bedside. She will be taken to CT scan and then directly to the ICU. Medical Decision The patient's presentation and history were concerning for respiratory failure. Etiologies such as COPD, reactive airway disease, CHF, cardiac ischemia, pulmonary embolism, pneumothorax, musculoskeletal, infections, gastrointestinal , pneumonia, as well as others were entertained. The patient presented to the emergency department in respiratory failure. Her history was somewhat limited but the family noted that she was complaining of shortness of breath and rapidly deteriorated. She had some posturing and was unresponsive for ALS. No seizure activity was described prior. The patient's son states that she was having dyspnea and was not sure of the exact time of onset but thinks it was going on just this morning. She was seen in Emergency Room several days ago for arthritis and her evaluation including blood work was unremarkable. Family stated that she was not having any breathing issues until this morning. There is no reports of cough or fever. EMS called for medical command. They were only a short time away from the emergency department. One attempt at intubation prior to calling for command was unsuccessful. The medic was told to continue [id number] ventilation as this was being successful at maintaining her saturation. At that time I did page for critical care, respiratory and the appropriate ancillary staff to be assembled. Intubation equipment was assembled. The patient arrived in the emergency department and was obtunded and requiring ventilatory support. Dr. Guo from critical care arrived less than a minute after the patient arrived in the emergency department. The patient was transferred to the [facility] and underwent resuscitation. She was tachycardic. She had poor breath sounds although her saturation by pulse oximetry was in the 90s for EMS. The patient underwent intubation as noted above. Because she was reported to have recent cardiac issues she was intubated using rocuronium and etomidate. This went well. The tube did slightly migrate distally and this was adjusted. The patient had very diminished breath sounds and was somewhat rhonchorous. There was difficulty maintaining her ventilation using the ventilator. Given concern for COPD/ emphysema/reactive airway issues the patient was given magnesium, an hour-long DuoNeb treatment through the ventilator, and also Solu-Medrol. There was one point where she had hypotension and was given IV fluids. A limited bedside ultrasound was performed by critical care. The patient had hypokinesis noted on cardiac ultrasound. Ultrasound was also concerning for pulmonary edema. The patient was suctioned without significant sputum production. Her ECG was essentially unchanged. There was some minimal elevation in V2 only. Very brief discussion between critical care and interventional cardiology, who was taking another patient to the catheterization suite for an acute ST elevation MA , recommended medical management and further diagnostics rather than catheterization. Laboratory testing revealed that the patient had an unremarkable chemistry panel. Lactate was minimally elevated. The patient's BNP was markedly elevated at 5300. Troponin, LFTs and lipase were unremarkable. Given the workup results to that point and additional information obtained from the family there was concerns for CHF as a component along with COPD. The patient was responding well to bronchodilators. The initial normal saline bolus that she was given was stopped. She was given IV Lasix. Her CBC did result a mild leukocytosis. The patient had dobutamine started by critical care and an A- line was placed. Bronchoscopy was performed by critical care and pulmonary edema was noted but no purulence was identified. I did meet with the family again along with Dr. Guo. They notified me of her hospitalization and I did request records around 1115hrs. These records started coming off of the fax machine at 1720 hrs. and were redirected to [facility] as the patient was transferred there by critical care. As patient's respiratory issues were stabilized additional testing would be necessary. She appears to be a combination of severe COPD and CHF. Additional testing and treatment will further elucidate the cause. Her recent MA is concerning and cardiogenic shock is a possibility. I did discuss imaging with head CT and a CT PE study with Dr Guo. He was in agreement. The plan will be to take the patient from the emergency department to imaging and then directly to the ICU for further management of her critical condition. I did consult with the [facility] hospitalist service to notify them for assistance in the patient's care. I did have family come to the bedside and updated them. The patient was transferred emergently to radiology then to the ICU for further care. After the patient left the emergency department the Head CT did not reveal any acute findings. The patient's chest CT did have several findings as noted above. No PE. The history and diagnostic workup in the emergency department appeared to be more of a cardiogenic etiology rather than infectious etiology. The chart was completed utilizing [employer] Speech voice recognition software. Grammatical errors, random word insertions, pronoun errors, and incomplete sentences are an occasional consequence of this system due to software limitations, ambient noise, and hardware issues. Any formal questions or concerns about the content, text, or information contained within the body of this dictation should be directly addressed to the physician for clarification. Consults Time Called: 1020 Consulting Physician: Dr. Guo, Costume Shop Manager Returned Call: [phone]: Dr. Guo, Costume Shop Manager, at bedside. Additional Consults: Time Called: 1125 Consulted Physician: Vilma Schultz PA-C, Eilsabet Valencia. Returned Call: 1128 Additional Comments: 1128: Discussed the case with Vilma Schultz PA-C, [facility]. She is aware. Impression Primary Impression: Respiratory failure Additional Impressions: COPD, severe Congestive heart failure Critical Care I have personally spent greater than 60 minutes of critical care time in the direct management of this patient. This includes bedside care, interpretation of diagnostic studies, and testing, discussion with consultants, patient, and family members, and other required patient management activities. This 60 minutes is in excess of all separately billable procedures. Scribe Attestation The scribe's documentation has been prepared under my direction and personally reviewed by me in its entirety. I confirm that the note above accurately reflects all work, treatment, procedures, and medical decision making performed by me. Departure Information Dispostion Being Evaluated By Hospitalist (+ Costume Shop Manager) Problem Qualifiers Additional Impressions: Congestive heart failure Congestive heart failure type: unspecified congestive heart failure type Congestive heart failure chronicity: acute Qualified Codes: I50.9 - Heart failure, unspecified
== END 2016-11-19 18:10 | disposition short-term general hospital (02) | DRG 208 ==
LOC: ENRESERVDT → ENRESERVTM → EDBD 10:27 → C.EDB 10:29 → C.MSICU 11:46
PROVIDERS: ADMIT Hospitalist; ATTEND Internal Medicine
PROC: 0BH17EZ Insertion of Endotracheal Airway into Trachea, Via Natural or Artificial Opening (ICD-10-PCS; principal; 2016-11-19)
PROC: 5A1935Z Respiratory Ventilation, Less than 24 Consecutive Hours (ICD-10-PCS; principal; 2016-11-19)
PROC: 0BJ08ZZ Inspection of Tracheobronchial Tree, Via Natural or Artificial Opening Endoscopic (ICD-10-PCS; principal; 2016-11-19)
PROC: 03HY32Z Insertion of Monitoring Device into Upper Artery, Percutaneous Approach (ICD-10-PCS; principal; 2016-11-19)
DX: J96.01 Acute respiratory failure with hypoxia (principal); I50.23 Acute on chronic systolic (congestive) heart failure; G92 Toxic encephalopathy; R57.0 Cardiogenic shock; E87.2 Acidosis; Z99.11 Dependence on respirator [ventilator] status; J44.0 Chronic obstructive pulmonary disease with (acute) lower respiratory infection; I25.10 Atherosclerotic heart disease of native coronary artery without angina pectoris; I95.9 Hypotension, unspecified; I25.2 Old myocardial infarction; I11.0 Hypertensive heart disease with heart failure; M19.90 Unspecified osteoarthritis, unspecified site; I73.9 Peripheral vascular disease, unspecified; Z79.82 Long term (current) use of aspirin; I27.2 Other secondary pulmonary hypertension; Z87.891 Personal history of nicotine dependence; Z82.3 Family history of stroke; Z82.49 Family history of ischemic heart disease and other diseases of the circulatory system; Z79.02 Long term (current) use of antithrombotics/antiplatelets; R73.9 Hyperglycemia, unspecified; M25.541 Pain in joints of right hand; M25.542 Pain in joints of left hand; M25.561 Pain in right knee; M25.562 Pain in left knee; I70.90 Unspecified atherosclerosis; I77.1 Stricture of artery; J96.90 Respiratory failure, unspecified, unspecified whether with hypoxia or hypercapnia; Z79.52 Long term (current) use of systemic steroids; Z79.899 Other long term (current) drug therapy

== ENCOUNTER 2017-08-30 11:45 | Emergency (ER) | payer OTHER ==
[~2017-08-30] VITALS: Ht 152.4 cm; Wt 64.5 kg
[~2017-08-30 11:45] MED LIST changes: +DIPH25CA65 PO; -NTRGSL/4 UT; +OXYC-57 PO; +PRD10 PO
[2017-08-30 12:00] VITALS: TEMP 36.2
[2017-08-30] MEDS ORDERED: SODIUM CHLORIDE 0.9% 1000ML 1,000 ML IV STA (12:29)
[2017-08-30] MEDS ORDERED: ONDANSETRON INJ 2 MG/ML 2 ML VIAL IV STA ×2 (12:55→15:38)
[2017-08-30] MEDS ORDERED: OPTIRAY 320 IV PRN (13:15)
[2017-08-30 13:30] LABS: BASO % 0.1 %; BASO ABS # 0.02 K/uL (0-0.2); HEMATOCRIT 35.6 % (37-47); HEMOGLOBIN 12.1 g/dL (12.0-16.0); IG# 0.08 K/uL (0.00-0.02); LYMPH % 2.4 %; LYMPH ABS # 0.53 K/uL (1.2-3.4); MEAN CELL VOLUME 88.3 fL (80-100); MONO % 5.4 %; MONO ABS # 1.16 K/uL (0.11-0.59); NEUT % 91.7 %; NEUT ABS # 19.87 K/uL (1.4-6.5); PLATELET COUNT 296 K/uL (130-400); RED CELL DISTRIBUTION WIDTH CV 14.2 % (11.5-14.5); RED CELL DISTRIBUTION WIDTH SD 42.3 fL (36.4-46.3); WHITE BLOOD COUNT 21.66 K/uL (4.8-10.8)
[2017-08-30] MEDS: HYDROmorphone INJ 0.5 MG/0.5 ML SYR IV PRN ×3 (13:44→17:58)
[2017-08-30 13:53] LABS: ALBUMIN 3.9 gm/dl (3.4-5.0); ALT/SGPT 17 U/L (12-78); AST/SGOT 14 U/L (15-37); BLOOD UREA NITROGEN 58 mg/dl (7-18); CALCIUM 9.5 mg/dl (8.5-10.1); CARBON DIOXIDE 27 mmol/L (21-32); CREATININE 3.27 mg/dl (0.60-1.20); GLUCOSE 112 mg/dl (70-99); LIPASE 512 U/L (73-393); POTASSIUM 4.3 mmol/L (3.5-5.1); SODIUM 130 mmol/L (136-145)
[2017-08-30 13:58] LABS: ALKALINE PHOSPHATASE 94 U/L (45-117); TOTAL PROTEIN 7.9 gm/dl (6.4-8.2)
[2017-08-30] MEDS ORDERED: SODIUM CHLORIDE 0.9% 500ML 500 ML IV STA ×2 (14:00→18:25)
--- NOTE | 2017-08-30 14:04 | EMERGENCY ROOM VISIT NOTE ---
History Report prepared by Donna: Chavez Zhao Under the Supervision of: Dr. Jacques Lopez M.D. First contact with patient: 12:28 Chief Complaint: ABDOMINAL PAIN Stated Complaint: INTENSE ABDOMINAL PAIN Nursing Triage Summary: pt reports she has endoscopy in [place] has pain in abd and back pain worsens with movement. abnormality on pancreas seeing oncologist on in [place]. feels nausea. using zofran for nausea. History of Present Illness The patient is a 77 year old female who presents to the Emergency Room with complaints of worsening abdominal pain that originally onset in early July, over a month ago. Per the patient's family she was at [facility] yesterday for an Endoscopy with [facility] to evaluate a growth on her pancreas. The Endoscopy revealed that the growth did contain cancerous tissue and is likely transitioning into a tumor. The patient claims that since the procedure, her abdominal pain has worsened significantly, and she has been becoming increasingly nauseous. She has had multiple CT imaging studies of the abdomen recently, which have diagnosed diverticulitis. There is also pain present in the lower back. Her chronic abdominal pain since July has been noted to likely be a result of the cancer. The patient denies any other LOC, headache, fevers, chills, diaphoresis, visual changes, neck pain, chest pain, breathing difficulties, melena, hematochezia, urinary symptoms, numbness, weakness, lymphadenopathy, rash, or other complaints. 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 A total of ten systems were reviewed and were otherwise negative. Past Medical & Surgical Medical Problems: (1) Aortic arch arteritis (2) Atherosclerosis of [place] arteries of extremity with rest pain (3) Carotid stenosis (4) Congestive heart failure (5) COPD, severe (6) Dyslipidemia (7) Heart failure, systolic, due to CAD (8) History of MD (myocardial infarction) (9) HTN (hypertension) (10) Lumbar radicular pain (11) Mitral regurgitation (12) Osteoarthritis (13) Osteoporosis (14) Polyarthralgia (15) PVD (peripheral vascular disease) (16) Respiratory failure (17) Right leg pain Surgical Problems: (1) History of procedure for peripheral vascular disease (2) Hx of endoscopy (3) S/P coronary artery stent placement Family History Diabetes mellitus SON FH: CAD (coronary artery disease) SISTER FH: CHF (congestive heart failure) FATHER Stroke SON BROTHER Social History Smoking Status: Former Smoker Alcohol Use: none Housing Status: lives with family Occupation Status: retired Current/Historical Medications Scheduled Acetaminophen (Tylenol), 1,000 MG PO Q6H Aspirin (Aspirin Ec), 81 MG PO DAILY Atorvastatin (Lipitor), 40 MG PO DAILY Fluticasone Prop/Salmeterol (Advair Diskus 250/50 60 Dose), 1 PUFF INH BID Fluticasone Propionate (Nasal) (Flonase Allergy Relief), 2 SPRAY INH BID Losartan Potassium (Cozaar), 25 MG PO DAILY Metoprolol Tartrate (Lopressor) (Lopressor), 75 MG PO BID Polyethylene Glycol 3350 (Miralax), 17 GM PO DAILY Tiotropium [place] (Spiriva Handihaler), 1 CAP INH DAILY Scheduled PRN Albuterol Hfa (Ventolin Hfa), 2 PUFFS INH Q4H PRN for Shortness of Breath Diphenhydramine Hcl (Benadryl Allergy), 1 CAP PO QID PRN for as needed Allergies Coded Allergies: Isosorbide Nitrate (Unverified Allergy, Intermediate, ITCH, 08/30/17) Physical Exam Vital Signs Date Time Temp Pulse Resp B/P (MAP) Pulse Ox O2 Delivery O2 Flow Rate FiO2 08/30/17 19:15 83 20 97 Nasal Cannula 2.0 08/30/17 18:45 79 22 88/74 98 Nasal Cannula 2.0 08/30/17 17:58 83 16 105/48 96 Nasal Cannula 2.0 08/30/17 17:47 86 23 96/72 95 Nasal Cannula 2.0 08/30/17 16:48 83 16 126/80 97 Nasal Cannula 2.0 08/30/17 15:24 85 24 91/70 90 Room Air 08/30/17 13:38 86 22 103/56 92 Room Air 08/30/17 12:50 86 08/30/17 12:00 36.2 87 16 94/52 96 Room Air Physical Exam GENERAL: Awake, alert, uncomfortable-appearing, in no distress HENT: Normocephalic, atraumatic. Oropharynx unremarkable. EYES: Normal conjunctiva. Sclera non-icteric. NECK: Supple. No nuchal rigidity. FROM. No JVD. RESPIRATORY: Clear to auscultation. CARDIAC: Regular rate, normal rhythm. Extremities warm and well perfused. Pulses equal. ABDOMEN: Soft, non-distended. Diffuse tenderness to palpation across abdomen. No rebound or guarding. No masses. RECTAL: Deferred. MUSCULOSKELETAL: Chest examination reveals no tenderness. The back is symmetrical on inspection without obvious abnormality. There is no CVA tenderness to palpation. No joint edema. LOWER EXTREMITIES: Calves are equal size bilaterally and non-tender. No edema. No discoloration. NEURO: Normal sensorium. No sensory or motor deficits noted. SKIN: No rash or jaundice noted. Medical Decision & Procedures ER Provider Diagnostic Interpretation: Radiology results as stated below per my review and radiologist interpretation: CT SCAN OF THE ABDOMEN AND PELVIS WITHOUT IV CONTRAST CLINICAL HISTORY: Generalized abdominal pain. Reported history of recent upper endoscopy. COMPARISON STUDY: No priors. TECHNIQUE: CT scan of the abdomen and pelvis is performed from the lung bases to the proximal femora. Images are reviewed in the axial, sagittal, and coronal planes. IV contrast was not administered for this examination due to poor renal function and elevated serum creatinine. Note that the examination is suboptimal without IV contrast. Oral contrast was utilized. A dose lowering technique was utilized adhering to the principles of ALARA. The examination is degraded by streak artifact from the right arm which could not be elevated above the abdomen. CT DOSE: 469.89 mGycm FINDINGS: Lung bases: The heart is normal in size and without pericardial effusion. The coronary arteries are densely calcified. Emphysematous change is suspected. There is a trace right pleural effusion. No airspace consolidation is identified. Liver: The unenhanced liver is normal in size, contour, and attenuation. There is no intrahepatic biliary ductal dilatation. Gallbladder: Unremarkable. Spleen: Normal in size and attenuation. Pancreas: The unenhanced pancreas is suboptimally assessed. The pancreatic head appears markedly enlarged measuring over 5 cm in length (axial image #164). The body and tail are atrophic. No ductal dilatation is identified. Adrenal glands: Unremarkable. Kidneys: The unenhanced kidneys are atrophic and without hydronephrosis. There are no renal calculi clearly identified. Renovascular calcifications are noted. There is no evidence of contour deforming renal mass lesion. Abdominal vasculature: There is advanced atherosclerotic calcification and ectasia of the abdominal aorta. Stents are noted in the iliac arteries. Bowel: There is no bowel obstruction. A duodenal diverticulum is noted. Findings are consistent with visceral perforation. This likely involves the distal stomach or duodenum. A site of perforation is suggested the proximal duodenum on image #129. There are scattered colonic diverticula without CT evidence of acute diverticulitis. Moderate fecal retention is noted in the right colon. The appendix is normal as visualized. Peritoneum: There is a large volume of intraperitoneal free air below the diaphragm. There is free fluid in the upper abdomen, with significant extraluminal enteric contrast extending along the medial and inferior margin of liver and into the right paracolic gutter. The findings are consistent with visceral perforation. Lymphadenopathy: None. Pelvic viscera: The bladder bladder and uterus are normal as imaged. There is fullness of the left ovary with low-attenuation foci identified which are likely cystic. This is seen on axial image #316. A vaginal pessary is in place. Skeletal structures: The skeletal structures are osteopenic. There are age indeterminant compression deformities of T12 and L3. No lytic or blastic lesions are seen. IMPRESSION: 1. Findings are consistent with visceral perforation, likely involving the distal stomach/proximal duodenum. See above. Surgical consultation is advised. 2. The pancreatic head appears markedly enlarged. Although not well assessed on this unenhanced examination the appearance is highly concerning for a pancreatic mass. Follow-up is advised. 3. Suspect emphysema. 4. There is nonspecific prominence of the left ovary for age. Follow-up with a nonemergent pelvic ultrasound is recommended. 5. Additional findings as above. Findings were called to Dr. Lopez at the time of interpretation. Electronically signed by: Raf Francois M.D. 08/30/2017 4:45 PM Dictated Date/Time: 08/30/2017 4:32 PM Laboratory Results 08/30/17 12:46 Red Blood Count 4.03, Mean Corpuscular Volume 88.3, Mean Corpuscular Hemoglobin 30.0, Mean Corpuscular Hemoglobin Concent 34.0, Mean Platelet Volume 10.0, Neutrophils (%) (Auto) 91.7, Lymphocytes (%) (Auto) 2.4, Monocytes (%) (Auto) 5.4, Eosinophils (%) (Auto) 0.0, Basophils (%) (Auto) 0.1, Neutrophils # (Auto) 19.87, Lymphocytes # (Auto) 0.53, Monocytes # (Auto) 1.16, Eosinophils # (Auto) 0.00, Basophils # (Auto) 0.02 08/30/17 12:46 Test 08/30/17 12:46 08/30/17 13:50 08/30/17 17:58 White Blood Count 21.66 K/uL (4.8-10.8) Red Blood Count 4.03 M/uL (4.2-5.4) Hemoglobin 12.1 g/dL (12.0-16.0) Hematocrit 35.6 % (37-47) Mean Corpuscular Volume 88.3 fL (80-100) Mean Corpuscular Hemoglobin 30.0 pg (25-34) Mean Corpuscular Hemoglobin Concent 34.0 g/dl (32-36) Platelet Count 296 K/uL (130-400) Mean Platelet Volume 10.0 fL (7.4-10.4) Neutrophils (%) (Auto) 91.7 % Lymphocytes (%) (Auto) 2.4 % Monocytes (%) (Auto) 5.4 % Eosinophils (%) (Auto) 0.0 % Basophils (%) (Auto) 0.1 % Neutrophils # (Auto) 19.87 K/uL (1.4-6.5) Lymphocytes # (Auto) 0.53 K/uL (1.2-3.4) Monocytes # (Auto) 1.16 K/uL (0.11-0.59) Eosinophils # (Auto) 0.00 K/uL (0-0.5) Basophils # (Auto) 0.02 K/uL (0-0.2) RDW Standard Deviation 42.3 fL (36.4-46.3) RDW Coefficient of Variation 14.2 % (11.5-14.5) Immature Granulocyte % (Auto) 0.4 % Immature Granulocyte # (Auto) 0.08 K/uL (0.00-0.02) Anion Gap 9.0 mmol/L (3-11) Estimated GFR () 15.2 Estimated GFR (Non- 13.1 BUN/Creatinine Ratio 17.8 (10-20) Calcium Level 9.5 mg/dl (8.5-10.1) Total Bilirubin 0.9 mg/dl (0.2-1) Direct Bilirubin 0.2 mg/dl (0-0.2) Aspartate Amino Transf (AST/SGOT) 14 U/L (15-37) Alanine Aminotransferase (ALT/SGPT) 17 U/L (12-78) Alkaline Phosphatase 94 U/L (45-117) Troponin I < 0.015 ng/ml (0-0.045) Total Protein 7.9 gm/dl (6.4-8.2) Albumin 3.9 gm/dl (3.4-5.0) Amylase Level 114 U/L (25-115) Lipase 512 U/L (73-393) Urine Color YELLOW Urine Appearance CLOUDY (CLEAR) Urine pH 5.0 (4.5-7.5) Urine Specific [place] 1.023 (1.000-1.030) Urine Protein TRACE (NEG) Urine Glucose (UA) 1+ (NEG) Urine Ketones NEG (NEG) Urine Occult Blood NEG (NEG) Urine Nitrite NEG (NEG) Urine Bilirubin NEG (NEG) Urine Urobilinogen NEG (NEG) Urine Leukocyte Esterase NEG (NEG) Urine WBC (Auto) 1-5 /hpf (0-5) Urine RBC (Auto) 0-4 /hpf (0-4) Urine Hyaline Casts (Auto) 1-5 /lpf (0-5) Urine Epithelial Cells (Auto) 10-20 /lpf (0-5) Urine Bacteria (Auto) 1+ (NEG) Urine Yeast (Auto) (NONE PRSENT) Lactic Acid Level 1.5 mmol/L (0.4-2.0) Laboratory results reviewed by me Medications Administered Medications (Trade) Dose Ordered Sig/Alcira Route Start Time Stop Time Status Last Admin Dose Admin Sodium Chloride 1,000 ml @ 125 mls/hr Q8H STAT IV 08/30/17 12:29 08/30/17 20:28 08/30/17 13:46 125 MLS/HR Hydromorphone HCl (Dilaudid Inj) 0.5 mg Q15M PRN IV 08/30/17 13:00 09/13/17 12:59 08/30/17 17:58 0.5 MG Ondansetron HCl (Zofran Inj) 4 mg NOW STAT IV 08/30/17 12:55 08/30/17 12:59 DC 08/30/17 13:44 4 MG Sodium Chloride 500 ml @ 999 mls/hr Q31M STAT IV 08/30/17 14:00 08/30/17 14:30 DC 08/30/17 14:00 999 MLS/HR Ondansetron HCl (Zofran Inj) 4 mg NOW STAT IV 08/30/17 15:38 08/30/17 15:44 DC 08/30/17 15:44 4 MG Piperacillin Sod/ Tazobactam Sod (Zosyn Iv) 4.5 gm NOW STAT IV 08/30/17 16:34 08/30/17 16:35 DC 08/30/17 16:44 4.5 GM Fluconazole/ Sodium Chloride 200 mg/Prmx 100 ml @ 100 mls/hr NOW STAT IV 08/30/17 17:52 08/30/17 18:51 DC 08/30/17 18:06 100 MLS/HR Sodium Chloride 500 ml @ 999 mls/hr Q31M STAT IV 08/30/17 18:25 08/30/17 18:55 DC 08/30/17 18:41 999 MLS/HR ECG Indication: abdominal pain Rate (beats per minute): 86 Rhythm: normal sinus Findings: Q waves (Septal), no acute ischemic change Change: Patient's electrocardiogram was interpreted by me. ED Course 1229: Ordered Sodium Chloride 1000 mL @ 125 mL/hr IV. 1238: The patient was evaluated in room A12B. A complete history and physical exam was performed. 1255: Ordered Zofran Inj 4 mg IV, 1300: Ordered Dilaudid 0.5 mg IV. 1400: Ordered Sodium Chloride 500 mL @ 999 mL/hr IV. 1406: I checked on the patient at this time. She is resting in bed. 1538: Ordered Zofran 4 mg IV. 1633: I received a call from radiology at this time. She has a perforated bowel. I will call for surgery. 1634: Ordered Zosyn IV 4.5 gm IV. 1638: I discussed the case with Dr. Costa - [facility] Surgery. He will evaluate the patient to continue care. 1703: I discussed the case with Michelle Villegas PA-C. She will evaluate the patient for hospitalist care to assist with surgery. 1716: Dr. Costa has evaluated the patient at this time. He requests the patient be sent to [place]. 1748: I discussed the case with Dr. De Jesus - [place] [facility]. He will accept the patient for transfer. 1758: I discussed the transfer and case with Dr. Person. He has approved the transfer, because the patient's insurance is [employer]. The patient will go by air. Medical Decision Prior records/ancillary studies reviewed. Triage Nursing notes reviewed and agree them. Additional history obtained from family. The patient's history was concerning for abdominal pain. Differential diagnosis: Etiologies such as complication of endoscopy, pancreatitis, obstruction, mesenteric ischemia, appendicitis, diverticulitis, PUD, biliary pathology, UTI, aortic pathology, infections, inflammatory bowel disease, renal colic, as well as others were entertained. Physical examination findings: As above. ER treatment provided: IV normal saline, multiple boluses and 125 mL an hour hydration IV Dilaudid multiple doses IV Zofran On reassessment the patient felt better. IV Zosyn Diagnostics interpreted by me: ECG: No evidence of ischemia or dysrhythmia. Sinus rhythm. The labs revealed a marked leukocytosis on CBC. Chemistry panel showed acute renal failure. Her lipase was minimally elevated at 512. Imaging studies: CT scan as above The patient presented with abdominal pain after endoscopy. Her CT shows that she has a perforated viscus. She was treated with fluids, narcotics, Zofran, and Zosyn. Emergent surgical consultation was deemed necessary. She also has acute renal failure. Emergent medicine consultation was also deemed appropriate for preoperative management. Consultation: A [facility] The case was discussed and diagnostics were reviewed. The patient was evaluated in the ER for further treatment. Recommendation for transfer was made by surgery. A consultation was placed with [facility] Gen. surgery at the patient and family request. The case was discussed. The patient was accepted in transfer. The patient has [facility] and therefore they were contacted for authorization of the transfer. I did discuss the case with Dr. Vásquez who offers transfer. He coordinated for [facility] to moss picker the patient and transfer her. Blood Pressure Screening Patient's blood pressure: Low blood pressure Referred to surgery Consults Time Called: 1632 Consulting Physician: Dr. Costa - [facility] Returned Call: 1638 I discussed the case with Dr. Igor AYERS Surgery. He will accept the patient to continue care. Additional Consults: Time Called: 1700 Consulted Physician: Michelle Villegas PA-C Returned Call: 1703 Additional Comments: I discussed the case with Michelle Villegas PA-C. She will evaluate the patient for hospitalist care to assist with surgery. Time Called: 1747 Consulted Physician: Dr. Liza [facility] Surgery Returned Call: 1749 Additional Comments: I discussed the case with Dr. Liza Crook Surgery. He will accept the patient for transfer. Impression Primary Impression: Perforated viscus Critical Care I have personally spent greater than 45 minutes of critical care time in the direct management of this patient. This includes bedside care, interpretation of diagnostic studies, and testing, discussion with consultants, patient, and family members, and other required patient management activities. This 30 minutes is in excess of all separately billable procedures. Scribe Attestation The scribe's documentation has been prepared under my direction and personally reviewed by me in its entirety. I confirm that the note above accurately reflects all work, treatment, procedures, and medical decision making performed by me. Departure Information Dispostion Transfer Acute Care Facility ([facility]) Referrals No Doctor, Assigned (PCP) Patient Instructions [facility]
[2017-08-30] MEDS ORDERED: METO25TA56 PO (14:19)
[2017-08-30] MEDS ORDERED: POLY335019 PO (14:20)
[2017-08-30] MEDS ORDERED: ACET-1256 PO (14:21)
[2017-08-30] MEDS ORDERED: FLUT0.15 INH (14:24)
[2017-08-30] MEDS ORDERED: PIPERACILLIN/TAZOBACTAM 4.5 GM/100ML D5W IV STA (16:34)
--- NOTE | 2017-08-30 16:46 | DIAGNOSTIC IMAGING REPORT ---
CT SCAN OF THE ABDOMEN AND PELVIS WITHOUT IV CONTRAST CLINICAL HISTORY: Generalized abdominal pain. Reported history of recent upper endoscopy. COMPARISON STUDY: No priors. TECHNIQUE: CT scan of the abdomen and pelvis is performed from the lung bases to the proximal femora. Images are reviewed in the axial, sagittal, and coronal planes. IV contrast was not administered for this examination due to poor renal function and elevated serum creatinine. Note that the examination is suboptimal without IV contrast. Oral contrast was utilized. A dose lowering technique was utilized adhering to the principles of ALARA. The examination is degraded by streak artifact from the right arm which could not be elevated above the abdomen. CT DOSE: 469.89 mGycm FINDINGS: Lung bases: The heart is normal in size and without pericardial effusion. The coronary arteries are densely calcified. Emphysematous change is suspected. There is a trace right pleural effusion. No airspace consolidation is identified. Liver: The unenhanced liver is normal in size, contour, and attenuation. There is no intrahepatic biliary ductal dilatation. Gallbladder: Unremarkable. Spleen: Normal in size and attenuation. Pancreas: The unenhanced pancreas is suboptimally assessed. The pancreatic head appears markedly enlarged measuring over 5 cm in length (axial image #164). The body and tail are atrophic. No ductal dilatation is identified. Adrenal glands: Unremarkable. Kidneys: The unenhanced kidneys are atrophic and without hydronephrosis. There are no renal calculi clearly identified. Renovascular calcifications are noted. There is no evidence of contour deforming renal mass lesion. Abdominal vasculature: There is advanced atherosclerotic calcification and ectasia of the abdominal aorta. Stents are noted in the iliac arteries. Bowel: There is no bowel obstruction. A duodenal diverticulum is noted. Findings are consistent with visceral perforation. This likely involves the distal stomach or duodenum. A site of perforation is suggested the proximal duodenum on image #129. There are scattered colonic diverticula without CT evidence of acute diverticulitis. Moderate fecal retention is noted in the right colon. The appendix is normal as visualized. Peritoneum: There is a large volume of intraperitoneal free air below the diaphragm. There is free fluid in the upper abdomen, with significant extraluminal enteric contrast extending along the medial and inferior margin of liver and into the right paracolic gutter. The findings are consistent with visceral perforation. Lymphadenopathy: None. Pelvic viscera: The bladder bladder and uterus are normal as imaged. There is fullness of the left ovary with low-attenuation foci identified which are likely cystic. This is seen on axial image #316. A vaginal pessary is in place. Skeletal structures: The skeletal structures are osteopenic. There are age indeterminant compression deformities of T12 and L3. No lytic or blastic lesions are seen. IMPRESSION: 1. Findings are consistent with visceral perforation, likely involving the distal stomach/proximal duodenum. See above. Surgical consultation is advised. 2. The pancreatic head appears markedly enlarged. Although not well assessed on this unenhanced examination the appearance is highly concerning for a pancreatic mass. Follow-up is advised. 3. Suspect emphysema. 4. There is nonspecific prominence of the left ovary for age. Follow-up with a nonemergent pelvic ultrasound is recommended. 5. Additional findings as above. Findings were called to Dr. Lopez at the time of interpretation. Electronically signed by: Raf Francois M.D. 08/30/2017 4:45 PM Dictated Date/Time: 08/30/2017 4:32 PM
--- NOTE | 2017-08-30 17:29 | Medical Consult ---
Consultation Date of Consultation: Aug 30, 2017. Attending Physician: Reason for Consultation: Possible distal stomach/proximal duodenum perforation. History of Present Illness Ms. Martinez is a 77-year-old female who presented to [facility] this afternoon for evaluation of abdominal pain. Patient had upper endoscopy along with pancreatic biopsy yesterday at [facility]. She reports that the abdominal pain began right after endoscopy was completed. Past Medical/Surgical History Medical Problems: (1) Lumbar radicular pain Status: Acute (2) Perforated viscus Status: Acute (3) Polyarthralgia Status: Acute (4) Right leg pain Status: Acute Family History Diabetes mellitus SON FH: CAD (coronary artery disease) SISTER FH: CHF (congestive heart failure) FATHER Stroke SON BROTHER Social History Smoking Status: Former Smoker Housing Status: lives with family Occupation Status: retired Allergies Coded Allergies: Isosorbide Nitrate (Unverified Allergy, Intermediate, ITCH, 08/30/17) Current Inpatient Medications Current Inpatient Medications Medications (Trade) Dose Ordered Sig/Alcira Route Start Time Stop Time Status Last Admin Dose Admin Sodium Chloride 1,000 ml @ 125 mls/hr Q8H STAT IV 08/30/17 12:29 08/30/17 20:28 08/30/17 13:46 125 MLS/HR Hydromorphone HCl (Dilaudid Inj) 0.5 mg Q15M PRN IV 08/30/17 13:00 09/13/17 12:59 08/30/17 15:25 0.5 MG Ioversol (Optiray 320) 111 ml UD PRN IV 08/30/17 13:15 09/03/17 13:14 Review of Systems Constitutional: No fever, No chills Abdomen: + pain, + nausea Physical Exam Date Time Temp Pulse Resp B/P (MAP) Pulse Ox O2 Delivery O2 Flow Rate FiO2 08/30/17 16:48 83 16 126/80 97 Nasal Cannula 2.0 08/30/17 15:24 85 24 91/70 90 Room Air 08/30/17 13:38 86 22 103/56 92 Room Air 08/30/17 12:50 86 08/30/17 12:00 36.2 87 16 94/52 96 Room Air General Appearance: WD/WN, no apparent distress Head: normocephalic, atraumatic Respiratory/Chest: no respiratory distress, no accessory muscle use Abdomen/GI: soft, + tenderness (across the abdomen. ) Laboratory Results Last 24 Hours Test 08/30/17 12:46 08/30/17 13:50 White Blood Count 21.66 K/uL Red Blood Count 4.03 M/uL Hemoglobin 12.1 g/dL Hematocrit 35.6 % Mean Corpuscular Volume 88.3 fL Mean Corpuscular Hemoglobin 30.0 pg Mean Corpuscular Hemoglobin Concent 34.0 g/dl Platelet Count 296 K/uL Mean Platelet Volume 10.0 fL Neutrophils (%) (Auto) 91.7 % Lymphocytes (%) (Auto) 2.4 % Monocytes (%) (Auto) 5.4 % Eosinophils (%) (Auto) 0.0 % Basophils (%) (Auto) 0.1 % Neutrophils # (Auto) 19.87 K/uL Lymphocytes # (Auto) 0.53 K/uL Monocytes # (Auto) 1.16 K/uL Eosinophils # (Auto) 0.00 K/uL Basophils # (Auto) 0.02 K/uL RDW Standard Deviation 42.3 fL RDW Coefficient of Variation 14.2 % Immature Granulocyte % (Auto) 0.4 % Immature Granulocyte # (Auto) 0.08 K/uL Sodium Level 130 mmol/L Potassium Level 4.3 mmol/L Chloride Level 94 mmol/L Carbon Dioxide Level 27 mmol/L Anion Gap 9.0 mmol/L Blood Urea Nitrogen 58 mg/dl Creatinine 3.27 mg/dl Estimated GFR () 15.2 Estimated GFR (Non- 13.1 BUN/Creatinine Ratio 17.8 Random Glucose 112 mg/dl Calcium Level 9.5 mg/dl Total Bilirubin 0.9 mg/dl Direct Bilirubin 0.2 mg/dl Aspartate Amino Transf (AST/SGOT) 14 U/L Alanine Aminotransferase (ALT/SGPT) 17 U/L Alkaline Phosphatase 94 U/L Troponin I < 0.015 ng/ml Total Protein 7.9 gm/dl Albumin 3.9 gm/dl Amylase Level 114 U/L Lipase 512 U/L Urine Color YELLOW Urine Appearance CLOUDY Urine pH 5.0 Urine Specific [place] 1.023 Urine Protein TRACE Urine Glucose (UA) 1+ Urine Ketones NEG Urine Occult Blood NEG Urine Nitrite NEG Urine Bilirubin NEG Urine Urobilinogen NEG Urine Leukocyte Esterase NEG Urine WBC (Auto) 1-5 /hpf Urine RBC (Auto) 0-4 /hpf Urine Hyaline Casts (Auto) 1-5 /lpf Urine Epithelial Cells (Auto) 10-20 /lpf Urine Bacteria (Auto) 1+ Urine Yeast (Auto) Assessment & Plan 77-year-old female- 1 day s/p Upper endoscopy with biopsy of pancreas Patient seen and examined with Dr. Costa. CT scan reviewed-1. Findings are consistent with visceral perforation, likely involving the distal stomach/proximal duodenum. 2. The pancreatic head appears markedly enlarged. Although not well assessed on this unenhanced examination the appearance is highly concerning for a pancreatic mass. Follow-up is advised. 3. Suspect emphysema. 4. There is nonspecific prominence of the left ovary for age. Follow-up with a nonemergent pelvic ultrasound is recommended. WBC elevated at 21.66, Cr 3.27 Recommend that patient be transferred back to [facility] for evaluation. Plan discussed with patient and patient's family- all understand and all in agreement.
[2017-08-30] MEDS ORDERED: FLUCONAZOLE / NSS 200 MG in PREMIXED NSS 100 ML IV STA (17:52)
--- NOTE | 2017-08-30 17:54 | Progress Note ---
Progress Note Date of Service Aug 30, 2017. Progress Note ATTENDING ADDENDUM : pt seen and examine as ER consult , care co ordinated with Amanda Johnson 77 yo F recently diagnosed with pancreatic mass underwent EGD /EUS with biopsy of the mass yesterday 08/29/[address] Jacques Valentine post procedure pt developed severe abdominal pain 10/10 , worse with minimum movement , deep breath pt was discharged form Endoscopy suite at home unable to eat or drink due to severe pain Had nausea took tramadol -with no improvement called her family physician -was asked to come to ER lab shows : marked Leukocytosis WBC 21 K /MIKE Cr > 3.5 ( baseline 1.4 ) CT abdomen /pelvis with out contrast in ED shows Findings are consistent with visceral perforation, likely involving the distal stomach/proximal duodenum. P/e: gen ; elderly male , in distress due to abdominal pain HEENT ; dry oral mucosa lungs; diminished breath sound HT : regular abdomen ; board like rigidity , very tender , + voluntary guarding / quite abdomen -no bowel sound audible PERFORATED VISUS ( VISCERAL PERFORATION OF DISTAL STOMACH/PROXIMAL DUODENUM ) : -possible post procedure complication -EUS with biopsy done at [facility] yesterday report of finding shows: Irregular mass noted in the pancreatic head , 4.1 cm x 3.7 cm , irregular margin FNA for cytology performed -as per family -post procedure -pt developed severe abdominal pain with minimum movement -Nursing team was updated -was told possible due gas common after EGD procedure -abdominal pain worsen after returning home , nausea, unable to eat -ER visit : -presents with s/s of Peritonitis ; marked leukocytosis , MIKE , hypotensive pt given IV fluid bolus /IV Zosyn CT abdomen /pelvis finding as above Surgery team consulted, [facility] Surgery team evaluated the pt in ER recommend pt should be transferred via Air to [facility] -not safe to do emergent exp lap -just had procedure done at [facility] / complicated nature of the Perforation /presence of Pancreatic mass -will need Tertiary level care D/w process control supervisor GI fellow Dr Dontae Livingston -updated on Pt's status and complication with Bowel perforation GI team with Co ordinate with [facility] Surgical team for patient care ER physician contacted [facility] -pt is excepted by Dr Pineda life flighted to [facility] today ENZO SMITH MD
--- NOTE | 2017-08-30 18:16 | Medical Consult ---
Consultation Date of Consultation: Aug 30, 2017. Attending Physician: Reason for Consultation: Medical consult for surgery History of Present Illness Pt is 77 y/o F with PMH HTN, systolic HF, COPD, CAD, mitral valve regurgitation presented to ER with c/o abdominal pain. Pt with hx intermittent abdominal pains since 07/2017. Had hospital admission on at [facility] in [place] for abdominal pain and 4.8 x 3.8 cm mass pancreatic head found. Had colonoscopy at that time with 5 benign polyps being removed. Pt needed further imaging. Yesterday had upper EUS at [facility]. Pt states after the procedure she had abdominal pain, but was sent home. Reports increased abdominal pain and nausea. Wasn't able to eat or drink. Doesn't think she had fever. Denies diaphoresis, D/C, PERKINS, dizziness, vision changes, neck pain , CP, SOB, palpitations, cough, extremity edema, rashes, urinary symptoms. She presented to [facility] ER. Here in ER T: 36.2, BP: 94/52, WBC: 21, Na: 130, BUN: 58, Cr: 3.2 (baseline 1.4), GFR: 17.8. Negative troponin. CT abd/pelvis: visceral perforation distal stomach/upper duodenum. Pt given 500ml bolus NSS and then at 125ml/hr. Given zofran 4mg x 2 doses and Zosyn, Dilaudid 0.5mg. Dr Costa - surgery consulted in ER and determines pt needs transferred back to [facility]. ER physician is working on transfer of pt to [facility]. 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 Status: Chronic (3) Carotid stenosis Status: Chronic (4) Congestive heart failure Status: Chronic (5) COPD, severe Status: Chronic (6) Dyslipidemia Status: Chronic (7) Heart failure, systolic, due to CAD Status: Chronic (8) History of SC (myocardial infarction) Status: Chronic (9) HTN (hypertension) Status: Chronic (10) Lumbar radicular pain Status: Resolved (11) Mitral regurgitation Status: Chronic (12) Osteoarthritis Status: Chronic (13) Osteoporosis Status: Chronic (14) Polyarthralgia Status: Resolved (15) PVD (peripheral vascular disease) Status: Chronic (16) Respiratory failure Status: Resolved (17) Right leg pain Status: Resolved Surgical Problems: (1) History of procedure for peripheral vascular disease Permanent Comment: 03/16/09- Left iliofemoral endarterectomy with bovine pericardial patch; percutaneous right common iliac stent, oepn left EIA and common iliac artery stents; Dr. Butler Status: Chronic (2) Hx of endoscopy Permanent Comment: 08/29/17 - [facility] Status: Resolved (3) S/P coronary artery stent placement Permanent Comment: 10/2016 at [facility] Status: Chronic Family History Diabetes mellitus SON FH: CAD (coronary artery disease) SISTER FH: CHF (congestive heart failure) FATHER Stroke SON BROTHER Social History Smoking Status: Former Smoker Smokeless Tobacco Use: No Alcohol Use: none Drug Use: none Housing Status: lives with family Occupation Status: retired Allergies Coded Allergies: Isosorbide Nitrate (Unverified Allergy, Intermediate, ITCH, 08/30/17) Current Inpatient Medications Current Inpatient Medications Medications (Trade) Dose Ordered Sig/Alcira Route Start Time Stop Time Status Last Admin Dose Admin Sodium Chloride 1,000 ml @ 125 mls/hr Q8H STAT IV 08/30/17 12:29 08/30/17 20:28 08/30/17 13:46 125 MLS/HR Hydromorphone HCl (Dilaudid Inj) 0.5 mg Q15M PRN IV 08/30/17 13:00 09/13/17 12:59 08/30/17 15:25 0.5 MG Ioversol (Optiray 320) 111 ml UD PRN IV 08/30/17 13:15 09/03/17 13:14 Physical Exam Date Time Temp Pulse Resp B/P (MAP) Pulse Ox O2 Delivery O2 Flow Rate FiO2 08/30/17 16:48 83 16 126/80 97 Nasal Cannula 2.0 08/30/17 15:24 85 24 91/70 90 Room Air 08/30/17 13:38 86 22 103/56 92 Room Air 08/30/17 12:50 86 08/30/17 12:00 36.2 87 16 94/52 96 Room Air General Appearance: WD/WN, + pertinent finding (ill appearing, lying supine appears moderately comfortable at this time) Head: normocephalic, atraumatic Eyes: normal inspection, PERRL ENT: hearing grossly normal, pharynx normal, + pertinent finding (mucous membranes dry) Neck: supple, trachea midline Respiratory/Chest: chest non-tender Cardiovascular: regular rate, rhythm Abdomen/GI: + pertinent finding (quiet, hypoactive bs, very faint palpation with tenderness entire abdomen, greater upper abdomen) Extremities/Musculoskelatal: no calf tenderness, no pedal edema Neurologic/Psych: alert, oriented x 3 Skin: normal color, warm/dry Laboratory Results Last 24 Hours Test 08/30/17 12:46 08/30/17 13:50 08/30/17 17:39 White Blood Count 21.66 K/uL Red Blood Count 4.03 M/uL Hemoglobin 12.1 g/dL Hematocrit 35.6 % Mean Corpuscular Volume 88.3 fL Mean Corpuscular Hemoglobin 30.0 pg Mean Corpuscular Hemoglobin Concent 34.0 g/dl Platelet Count 296 K/uL Mean Platelet Volume 10.0 fL Neutrophils (%) (Auto) 91.7 % Lymphocytes (%) (Auto) 2.4 % Monocytes (%) (Auto) 5.4 % Eosinophils (%) (Auto) 0.0 % Basophils (%) (Auto) 0.1 % Neutrophils # (Auto) 19.87 K/uL Lymphocytes # (Auto) 0.53 K/uL Monocytes # (Auto) 1.16 K/uL Eosinophils # (Auto) 0.00 K/uL Basophils # (Auto) 0.02 K/uL RDW Standard Deviation 42.3 fL RDW Coefficient of Variation 14.2 % Immature Granulocyte % (Auto) 0.4 % Immature Granulocyte # (Auto) 0.08 K/uL Sodium Level 130 mmol/L Potassium Level 4.3 mmol/L Chloride Level 94 mmol/L Carbon Dioxide Level 27 mmol/L Anion Gap 9.0 mmol/L Blood Urea Nitrogen 58 mg/dl Creatinine 3.27 mg/dl Estimated GFR () 15.2 Estimated GFR (Non- 13.1 BUN/Creatinine Ratio 17.8 Random Glucose 112 mg/dl Calcium Level 9.5 mg/dl Total Bilirubin 0.9 mg/dl Direct Bilirubin 0.2 mg/dl Aspartate Amino Transf (AST/SGOT) 14 U/L Alanine Aminotransferase (ALT/SGPT) 17 U/L Alkaline Phosphatase 94 U/L Troponin I < 0.015 ng/ml Total Protein 7.9 gm/dl Albumin 3.9 gm/dl Amylase Level 114 U/L Lipase 512 U/L Urine Color YELLOW Urine Appearance CLOUDY Urine pH 5.0 Urine Specific [place] 1.023 Urine Protein TRACE Urine Glucose (UA) 1+ Urine Ketones NEG Urine Occult Blood NEG Urine Nitrite NEG Urine Bilirubin NEG Urine Urobilinogen NEG Urine Leukocyte Esterase NEG Urine WBC (Auto) 1-5 /hpf Urine RBC (Auto) 0-4 /hpf Urine Hyaline Casts (Auto) 1-5 /lpf Urine Epithelial Cells (Auto) 10-20 /lpf Urine Bacteria (Auto) 1+ Urine Yeast (Auto) CT ABD/PELVIS: IMPRESSION: 1. Findings are consistent with visceral perforation, likely involving the distal stomach/proximal duodenum. See above. Surgical consultation is advised. 2. The pancreatic head appears markedly enlarged. Although not well assessed on this unenhanced examination the appearance is highly concerning for a pancreatic Assessment & Plan VISCERAL PERFORATION DISTAL STOMACH/UPPER DUODENUM Pt with upper EUS yesterday at [facility]. Since with increased abdominal pain, nausea unable to take anything orally. In ER WBC: 21. CT abd/pelvis: visceral perforation of stomach/duodenum. Pt was given 500ml bolus saline then running at 125ml/hr. Given zofran x 2 doses, Dilaudid 0.5mg, zosyn. Dr Costa general surgery consulted and feels pt needs transfer to [facility]. ER physician transferring pt to [facility] by air. MIKE Cr: 3.2 today. Cr 1.4 baseline Further care and management per ER and [facility] Pt seen with Dr Smith see addendum Pt Follows with Dr Hector for routine care ATTENDING ADDENDUM : pt seen and examine as ER consult , care co ordinated with Amanda Johnson 77 yo F recently diagnosed with pancreatic mass underwent EGD /EUS with biopsy of the mass yesterday 08/29/[address] Jacques Valentine post procedure pt developed severe abdominal pain 10/10 , worse with minimum movement , deep breath pt was discharged form Endoscopy suite at home unable to eat or drink due to severe pain Had nausea took tramadol -with no improvement called her family physician -was asked to come to ER lab shows : marked Leukocytosis WBC 21 K /MIKE Cr > 3.5 ( baseline 1.4 ) CT abdomen /pelvis with out contrast in ED shows Findings are consistent with visceral perforation, likely involving the distal stomach/proximal duodenum. P/e: gen ; elderly male , in distress due to abdominal pain HEENT ; dry oral mucosa lungs; diminished breath sound HT : regular abdomen ; board like rigidity , very tender , + voluntary guarding / quite abdomen -no bowel sound audible PERFORATED VISUS ( VISCERAL PERFORATION OF DISTAL STOMACH/PROXIMAL DUODENUM ) : -possible post procedure complication -EUS with biopsy done at [facility] yesterday report of finding shows: Irregular mass noted in the pancreatic head , 4.1 cm x 3.7 cm , irregular margin FNA for cytology performed -as per family -post procedure -pt developed severe abdominal pain with minimum movement -Nursing team was updated -was told possible due gas common after EGD procedure -abdominal pain worsen after returning home , nausea, unable to eat -ER visit : -presents with s/s of Peritonitis ; marked leukocytosis , MIKE , hypotensive pt given IV fluid bolus /IV Zosyn CT abdomen /pelvis finding as above Surgery team consulted, [employer] Surgery team evaluated the pt in ER recommend pt should be transferred via Air to [facility] -not safe to do emergent exp lap -just had procedure done at [facility] / complicated nature of the Perforation /presence of Pancreatic mass -will need Tertiary level care D/w dining chair seat cushion trimmer GI fellow Dr Dontae Livingston -updated on Pt's status and complication with Bowel perforation GI team with Co ordinate with [facility] Surgical team for patient care ER physician contacted [facility] -pt is excepted by Dr Pineda life flighted to [facility] today ENZO SMITH MD
[2017-08-30 18:45] VITALS: BP 88/74
[2017-08-30 19:03] VITALS: Ht 152.4 cm; Wt 64.5 kg
[2017-08-30 19:15] VITALS: PULSE 83; O2SAT 97
--- NOTE | 2017-08-30 19:16 | HISTORY & PHYSICAL EXAMINATION ---
DATE OF ADMISSION: 08/30/2017 TIME OF CONSULTATION: Approximately 5:40 p.m. SUMMARY: We were called in by 5:00 this evening to see Sarita Juan who presented to us with what was described as history of abdominal air. As we came to see her, the patient appears to be chronically ill, no acute distress, but family is at bedside including her son, [id number] and actually her daughter. The story is such that yesterday, the patient underwent a procedure done at [facility] end[facility], GI. "DICTATION ENDS HERE."
--- NOTE | 2017-08-30 19:21 | CONSULTATION REPORT ---
DATE OF CONSULTATION: 08/30/2017 HISTORY OF PRESENT ILLNESS: Seen in the Emergency Room at approximately 5:00 p.m. My initial consultation with disconnected. SUMMARY: This is a 77-year-old female we were asked to see for abdominal free air. Walked in room, the patient was frail looking, but alert and oriented with her family at bedside including her son and [id number]'s sister. 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 When she left the hospital last evening she had excruciating pain right after the procedure to the point that family member says that we could not touch her belly. She was brought home and the pain intensified during the night to the point that she called her family doctor this morning and asked that she come into the Emergency Room. She came in to the Emergency Room at approximately noon today where her temperature was 36.2, her pulse was 87, respirations 16, blood pressure 94/52, O2 sats 96% on room air. The last vitals were obtained prior us to seeing her showed her heart rate 83, respirations 16, blood pressure 126/80, O2 sats 97% on 2 liters. She underwent workup here including laboratory study, which showed a white count 20.66, hemoglobin 12.1. She had significant left shift. Chemistries showed a BUN of 58, creatinine 3.27 with a lipase of 512. She was here approximately a few months back where she had normal renal function. The CAT scan was obtained which showed what appeared to be a perforation along the duodenal area. She has a duodenal diverticulum. She has free abdominal fluid. OBJECTIVE: GENERAL: On examination, at this time, the patient is fairly comfortable, not nauseated. She is complaining of pain but feel better than earlier today. ABDOMEN: Her abdomen is softly distended. She does have generalize guarding but no excruciate tenderness as the family was explaining before.(daughter stated that she could not touch her belly last night pt would jump). IMPRESSION AND PLAN: At this point, I had a long discussion with her family including Dr. Lopez, the ER physician, but I think the patient will be best served to return to [facility] to address the issue of likely duodenal perforation. They may decide to watch her overnight or if they need to proceed with surgery, there certainly have more documentation of what is going on since they treated her yesterday I leave that up to them as far as how to proceed with this included the fact that she had a pancreatic mass that was biopsied. Meantime, I would institute broad-spectrum antibiotic and IV hydration. She is stable enough to be transferred Thank you for allowing us to participate in the care your patient. BEATRIZ
== END 2017-08-30 19:20 | disposition short-term general hospital (02) ==
LOC: C.EDB 11:47 → C.EDA 19:20
DX: K63.1 Perforation of intestine (nontraumatic) (principal); M31.4 Aortic arch syndrome [Takayasu]; I25.811 Atherosclerosis of native coronary artery of transplanted heart without angina pectoris; G90.01 Carotid sinus syncope; I50.9 Heart failure, unspecified; J44.9 Chronic obstructive pulmonary disease, unspecified; E78.5 Hyperlipidemia, unspecified; I25.2 Old myocardial infarction; I10 Essential (primary) hypertension; M19.90 Unspecified osteoarthritis, unspecified site; M81.0 Age-related osteoporosis without current pathological fracture; I73.9 Peripheral vascular disease, unspecified; Z82.49 Family history of ischemic heart disease and other diseases of the circulatory system; Z82.3 Family history of stroke; Z87.891 Personal history of nicotine dependence; Z79.82 Long term (current) use of aspirin

== ENCOUNTER 2017-09-17 15:46 | Emergency (ER) | payer OTHER ==
[~2017-09-17] VITALS: Ht 152.4 cm; Wt 44.0 kg
[~2017-09-17 15:46] MED LIST changes: +ACET-1256 PO; -AMLO5TAB2 PO; -ASPI81TA28 PO; -ATEN-173 PO; -CLOP1TAB15 PO; +FLUT0.15 INH; -LOSA25TA18 PO; -LPT/40 PO; +METO25TA56 PO; -OXYC-57 PO; +POLY335019 PO; -PRD10 PO; -SPRIN/30 INH; -VNTHFA/IN INH
[2017-09-17 16:12] VITALS: Ht 152.4 cm; Wt 44.0 kg
[2017-09-17] MEDS ORDERED: MoRPHine SULFATE 4 MG/ML 1 ML CARP\\VIAL IV STA ×2 (16:36→21:07)
[2017-09-17] MEDS ORDERED: METOCLOPRAMIDE HCL INJ 5 MG/ML 2 ML VIAL IV STA (16:36)
--- NOTE | 2017-09-17 16:37 | EMERGENCY ROOM VISIT NOTE ---
History Report prepared by Donna: [facility] Under the Supervision of: Dr. Garett Bright M.D. First contact with patient: 16:19 Chief Complaint: DEHYDRATION Stated Complaint: NAUSEA, CANT EAT OR DRINK, DEHYDRATION Nursing Triage Summary: pt recently dx with pancreatic cancer [place] [facility] pt is not eating or drinking actively vomiting at triage severe back and abd pain History of Present Illness The patient is a 77 year old female with pancreatic cancer who presents to the Emergency Room with complaints of a persistent inability to keep any food or liquids down that started a week ago. Per the patient's family, the patient had an upper scope done a couple weeks ago, and was then transferred to [place] due to a perforation. The patient had a bowel resection done there, and was discharged 1 week ago from today. However, the patient has not been able to keep anything down since being discharged. Per the patient's family, the patient vomits 10 to 15 minutes after eating or drinking anything. The patient took an oxycodone pill in the waiting room here, and vomited it up. The patient' s home nurse suggested the patient come here today due to a whole week of hardly eating or drinking. The patient states that she has been having severe worsening lower back pain recently (that is chronic), but it does not hurt to take a deep breath. She denies any urinary symptoms. The patient is on Zofran as well as another medication currently but notes that they have not been working for her nausea. The patient denies any bowel movement issues or diarrhea. Source of History: patient, family Onset: A week ago Position: other (global - inability to keep food/drink down) Symptom Intensity: vomiting 10-15 minutes after eating or drinking Timing: other (persistent) Associated Symptoms: + nausea, + back pain, No diarrhea, No urinary symptoms Note: No other associated symptoms. Review of Systems See HPI for pertinent positives & negatives. A total of 10 systems reviewed and were otherwise negative. Past Medical & Surgical Medical Problems: (1) Aortic arch arteritis (2) Atherosclerosis of [place] arteries of extremity with rest pain (3) Carotid stenosis (4) Congestive heart failure (5) COPD, severe (6) Dyslipidemia (7) Heart failure, systolic, due to CAD (8) History of CT (myocardial infarction) (9) HTN (hypertension) (10) Lumbar radicular pain (11) Mitral regurgitation (12) Osteoarthritis (13) Osteoporosis (14) Polyarthralgia (15) PVD (peripheral vascular disease) (16) Respiratory failure (17) Right leg pain Surgical Problems: (1) History of procedure for peripheral vascular disease (2) Hx of endoscopy (3) S/P coronary artery stent placement Family History Diabetes mellitus SON FH: CAD (coronary artery disease) SISTER FH: CHF (congestive heart failure) FATHER Stroke SON BROTHER Social History Smoking Status: Never Smoker Alcohol Use: none Drug Use: none Housing Status: lives with family Occupation Status: retired Current/Historical Medications Scheduled Acetaminophen (Tylenol), 1,000 MG PO Q8 Aspirin (Aspirin Ec), 81 MG PO DAILY Atorvastatin (Lipitor), 40 MG PO HS Budesonide/Formoterol Fumarate (Symbicort 160-4.5 Mcg/Act), 2 PUFFS INH BID Bumetanide (Bumex), 1 MG PO QAM Enoxaparin (Lovenox), 40 MG SQ DAILY Losartan Potassium (Cozaar), 25 MG PO DAILY Metoprolol Succinate (Metoprolol Succinate ER), 75 MG PO BID Omeprazole (Prilosec), 40 MG PO DAILY Ondasetron Odt (Zofran Odt), 4 MG MT Q6H Tiotropium Rincon (Spiriva Handihaler), 1 CAP INH DAILY Scheduled PRN Albuterol Hfa (Ventolin Hfa), 2 PUFFS INH Q4H PRN for Wheezing Nitroglycerin (Nitrostat), 0.4 MG UT UD PRN for Chest Pain Oxycodone HCl (Oxycodone HCl), 5 MG PO Q4H PRN for Moderate Pain Polyethylene Glycol 3350 (Miralax), 17 GM PO DAILY PRN for Constipation Promethazine Hcl (Phenergan), 25 MG PO Q6H PRN for Nausea or Vomiting Allergies Coded Allergies: Isosorbide Nitrate (Unverified Allergy, Intermediate, ITCH, 08/30/17) Physical Exam Vital Signs Date Time Temp Pulse Resp B/P (MAP) Pulse Ox O2 Delivery O2 Flow Rate FiO2 09/17/17 23:48 94 18 95/74 94 09/17/17 22:31 36.9 94 16 86/47 94 Room Air 09/17/17 21:28 36.8 93 18 105/65 97 Room Air 09/17/17 20:21 95 16 94/51 96 Room Air 09/17/17 20:17 96 16 74/56 96 Room Air 09/17/17 19:00 99 18 97/74 97 Room Air 09/17/17 17:32 112 09/17/17 17:16 112 18 107/56 94 Room Air 09/17/17 16:12 36.5 76 20 99 Room Air Physical Exam GENERAL: Patient is an ill-appearing 77 year old female. HEAD: Normocephalic atraumatic EYES: Ocular movements intact pupils equal and react to light OROPHARYNX mucous membranes are moist no exudates present no erythema or edema present NECK: Supple no nuchal rigidity CHEST: Good equal expansion LUNGS: Clear and equal to auscultation CARDIAC: Normal S1 and S2 ABDOMEN: Soft nontender no guarding. Surgical site, erlinda in place, healing well. BACK: No CVA tenderness, no midline tenderness. EXTREMITIES: No pain upon palpation normal muscle strength in all groups no clubbing cyanosis or edema NEURO: Patient is following commands and answering questions appropriately. Alert and oriented x3 Cranial Nerves 2-12 grossly intact Medical Decision & Procedures ER Provider Diagnostic Interpretation: Radiology results as stated below per my review and radiologist interpretation: CHEST ONE VIEW PORTABLE CLINICAL HISTORY: Pt c/o SOB dyspnea COMPARISON STUDY: 11/19/2016 FINDINGS: Tortuous thoracic aorta. Emphysematous change. No focal infiltrate. IMPRESSION: Emphysematous change. No acute process. The above report was generated using voice recognition software. It may contain grammatical, syntax or spelling errors. Electronically signed by: Ángel Spicer M.D. 09/17/2017 5:15 PM Dictated Date/Time: 09/17/2017 5:15 PM ABDOMEN AND PELVIS CT WITH ORAL CONTRAST CT DOSE: 349.42 mGy.cm HISTORY: Acute generalized abdominal pain with nausea and vomiting. Pt c/o N V TECHNIQUE: Multiaxial CT images of the abdomen and pelvis were performed following the use of oral contrast. A dose lowering technique was utilized adhering to the principles of ALARA. COMPARISON STUDY: CT abdomen and pelvis 08/30/2017. FINDINGS: Lung bases appear clear. Coronary arterial calcifications are noted. Gallbladder is contracted. Evaluation of the solid abdominal organs is limited without the use of contrast. The liver, right adrenal gland and spleen are unremarkable. Mild nodular thickening of the left adrenal gland suggesting hyperplasia. The pancreatic head again appears to be markedly enlarged which is unchanged from comparison study 08/30/2017 measuring up to 5.0 cm in length. Vascular calcifications of the kidneys redemonstrated. 1.3 cm low attenuating lesion of the inferior pole right kidney suggests renal cyst. Ureters are unremarkable. There is nondependent air within the urinary bladder lumen. A past 3 device is noted in the vagina. Uterus is atrophic. Nonspecific prominence of the left ovary redemonstrated measuring up to 2.2 cm, unchanged. Calcifications of the right adnexa are again noted. Dilation of the descending thoracic aorta measures up to 3.6 cm. Sensitive atherosclerosis of the aorta is noted with aortobiiliac stent graft. No pathologic adenopathy identified. High attenuating material is noted within the gastric lumen. There is decreased amount of pneumoperitoneum in the upper abdomen. Persistent pneumoperitoneum is noted along the left hepatic lobe tracking along the evan hepatis along the first and second portions of the duodenum. Collection of air is noted within the right upper abdomen adjacent to the duodenum measuring up to 1.7 cm. No definite drainable abscess collection identified. There is no bowel obstruction. The appendix appears normal. Inflammatory stranding is noted within the right pericolic gutter which has decreased from prior. Post surgical changes of the abdominal wall with a small supraumbilical ventral abdominal hernia, 1.0 cm. Soft tissues are unremarkable. The bones appear moderately demineralized and appear intact. Large Schmorl's node at L3 with chronic appearing compression deformity at T12. IMPRESSION: 1. Decreased pneumoperitoneum from prior study with persistent pneumoperitoneum of the right upper abdomen adjacent to the left hepatic lobe, evan hepatis and proximal duodenum suggesting ongoing perforated viscus, likely from duodenal source. No drainable abscess collection identified. Surgical consultation recommended. 2. Decreased inflammatory stranding tracks along the right hepatic lobe and right pericolic gutter. 3. Heterogeneous increased size of the pancreatic head is again noted, suspicious for underlying pancreatic neoplasm. Follow-up again recommended. 4. No bowel obstruction. 5. Additional findings as above. Electronically signed by: Dick Colunga M.D. 09/17/2017 7:41 PM Dictated Date/Time: 09/17/2017 7:26 PM Laboratory Results 09/17/17 16:54 Red Blood Count 3.95, Mean Corpuscular Volume 88.4, Mean Corpuscular Hemoglobin 28.6, Mean Corpuscular Hemoglobin Concent 32.4, Mean Platelet Volume 9.7, Neutrophils (%) (Auto) 84.4, Lymphocytes (%) (Auto) 6.8, Monocytes (%) (Auto) 8.2, Eosinophils (%) (Auto) 0.1, Basophils (%) (Auto) 0.2, Neutrophils # (Auto) 8.22, Lymphocytes # (Auto) 0.66, Monocytes # (Auto) 0.80, Eosinophils # (Auto) 0.01, Basophils # (Auto) 0.02 09/17/17 16:54 Test 09/17/17 16:54 White Blood Count 9.74 K/uL (4.8-10.8) Red Blood Count 3.95 M/uL (4.2-5.4) Hemoglobin 11.3 g/dL (12.0-16.0) Hematocrit 34.9 % (37-47) Mean Corpuscular Volume 88.4 fL (80-100) Mean Corpuscular Hemoglobin 28.6 pg (25-34) Mean Corpuscular Hemoglobin Concent 32.4 g/dl (32-36) Platelet Count 527 K/uL (130-400) Mean Platelet Volume 9.7 fL (7.4-10.4) Neutrophils (%) (Auto) 84.4 % Lymphocytes (%) (Auto) 6.8 % Monocytes (%) (Auto) 8.2 % Eosinophils (%) (Auto) 0.1 % Basophils (%) (Auto) 0.2 % Neutrophils # (Auto) 8.22 K/uL (1.4-6.5) Lymphocytes # (Auto) 0.66 K/uL (1.2-3.4) Monocytes # (Auto) 0.80 K/uL (0.11-0.59) Eosinophils # (Auto) 0.01 K/uL (0-0.5) Basophils # (Auto) 0.02 K/uL (0-0.2) RDW Standard Deviation 50.0 fL (36.4-46.3) RDW Coefficient of Variation 15.6 % (11.5-14.5) Immature Granulocyte % (Auto) 0.3 % Immature Granulocyte # (Auto) 0.03 K/uL (0.00-0.02) Anion Gap 19.0 mmol/L (3-11) Est Creatinine Clear Calc Drug Dose 11.6 ml/min Estimated GFR () 17.6 Estimated GFR (Non- 15.2 BUN/Creatinine Ratio 13.4 (10-20) Calcium Level 9.4 mg/dl (8.5-10.1) Total Bilirubin 0.4 mg/dl (0.2-1) Direct Bilirubin mg/dl (0-0.2) Aspartate Amino Transf (AST/SGOT) 18 U/L (15-37) Alanine Aminotransferase (ALT/SGPT) 12 U/L (12-78) Alkaline Phosphatase 97 U/L (45-117) Total Creatine Kinase 33 U/L (26-192) Creatine Kinase MB 1.1 ng/ml (0.5-3.6) Creatine Kinase MB Ratio 3.3 (0-3.0) Troponin I 0.042 ng/ml (0-0.045) Total Protein 6.6 gm/dl (6.4-8.2) Albumin 3.0 gm/dl (3.4-5.0) Lipase 319 U/L (73-393) Chemistry Specimen Hemolysis Labs reviewed by ED physician. Medications Administered Medications (Trade) Dose Ordered Sig/Alcira Route Start Time Stop Time Status Last Admin Dose Admin Morphine Sulfate (MoRPHine SULFATE INJ) 4 mg NOW STAT IV 09/17/17 16:36 09/17/17 16:39 DC 09/17/17 17:26 4 MG Metoclopramide HCl (Reglan Inj) 10 mg NOW STAT IV 09/17/17 16:36 09/17/17 16:39 DC 09/17/17 17:25 10 MG Sodium Chloride 500 ml @ 999 mls/hr Q31M STAT IV 09/17/17 16:38 09/17/17 17:08 DC 09/17/17 16:38 999 MLS/HR Sodium Chloride 500 ml @ 999 mls/hr Q31M STAT IV 09/17/17 18:07 09/17/17 18:37 DC 09/17/17 20:24 999 MLS/HR Ondansetron HCl (Zofran Inj) 4 mg NOW STAT IV 09/17/17 18:07 09/17/17 18:08 DC 09/17/17 18:57 4 MG Cefepime HCl 1000 mg/Dextrose 111 ml @ 200 mls/hr NOW STAT IV 09/17/17 20:11 09/17/17 20:44 DC 09/17/17 21:10 200 MLS/HR Daptomycin 264 mg/ Sodium Chloride 55.28 ml @ 100 mls/hr NOW STAT IV 09/17/17 20:11 09/17/17 20:44 DC 09/17/17 21:10 100 MLS/HR Sodium Chloride 500 ml @ 999 mls/hr Q31M STAT IV 09/17/17 20:18 09/17/17 20:48 DC 09/17/17 20:24 999 MLS/HR Morphine Sulfate (MoRPHine SULFATE INJ) 4 mg NOW STAT IV 09/17/17 21:07 09/17/17 21:09 DC 09/17/17 21:23 4 MG Prochlorperazine Edisylate (Compazine Inj) 5 mg NOW STAT IV 09/17/17 21:07 09/17/17 21:09 DC 09/17/17 21:22 5 MG ECG Indication: nausea Rate (beats per minute): 112 Rhythm: sinus tachycardia Findings: T-wave inversion (Lateral), other (bi-atrial enlargement) Change: Patient's electrocardiogram per my interpretation. ED Course 1626: Past medical records reviewed. The patient was evaluated in room B7. A complete history and physical examination was performed. 1636: Ordered Reglan Inj 10 mg IV, Morphine Sulfate Inj 4 mg IV. 1638: Ordered NSS 500 ml @ 999 mls/hr IV. 1725: I reevaluated the patient and she is doing better. 1807: Ordered Zofran Inj 4 mg IV, NSS 500 ml @ 999 mls/hr IV. 2008: I discussed the patient with Dr. Eliseo Villegas [facility] general surgery - he says to send the patient down to [place]. 2010: Ordered Daptomycin 264 mg/NSS 55.28 ml @ 100 mls/hr IV, Cefepime HCl 1000 mg/Dextrose 111 ml @ 200 mls/hr IV. 2016: I discussed the patient with the [facility] ED - we got preauthorization to send the patient back to [place] to her surgeon, and the patient has been approved. The patient will be transferred to [facility]. 2030: Upon reexamination the patient is resting. I discussed results and treatment plan with the patient. She verbalizes agreement and understanding. The patient will be transferred to [facility]. Medical Decision Differential diagnosis: Etiologies such as appendicitis, diverticulitis, PUD, biliary pathology, UTI, pancreatitis, obstruction, mesenteric ischemia, aortic pathology, infections, inflammatory bowel disease, renal colic, as well as others were entertained. This is a 77-year-old female that presents emergency department unable to swallow any fluid. Patient recently had surgery on her abdomen for perforated viscus. An IV was established, patient was given morphine. Repeat examination revealed improvement the patient's symptoms. The patient was given 30 mL's per kilogram of fluid. She is in acute renal failure. She wiped blood cell count is 9 and she has a benign abdominal examination however the patient's CAT scan is concerning for continuation of the perforation. For this reason I did discuss this case with the surgeon on-call who asked that the patient be transferred to [place] as they originally did the surgery. The case was discussed with [facility] emergency department due to the patient's insurance who agreed to the transfer. The patient was then discussed with the surgeon at [place] who accepted the patient. In the emergency department here the patient was started on cefepime as well as daptomycin. Medication Reconcilliation Current Medication List: was personally reviewed by me Blood Pressure Screening Patient's blood pressure: Normal blood pressure Consults Time Called: 1999 Consulting Physician: Dr. Eliseo AYERS general surgery Returned Call: 2008 I discussed the patient with Dr. Eliseo AYERS general surgery - he says to send the patient down to [place]. Additional Consults: Time Called: 2009 Consulted Physician: [facility] ED Returned Call: 2015 Additional Comments: I discussed the patient with the [facility] ED - we got preauthorization to send the patient back to [place] to her surgeon, and the patient has been approved. The patient will be transferred to [facility]. Impression Primary Impression: Perforated abdominal viscus Additional Impression: Intractable vomiting Critical Care I have personally spent greater than 30 minutes of critical care time in the direct management of this patient. This includes bedside care, interpretation of diagnostic studies, and testing, discussion with consultants, patient, and family members, and other required patient management activities. This 30 minutes is in excess of all separately billable procedures. Scribe Attestation The scribe's documentation has been prepared under my direction and personally reviewed by me in its entirety. I confirm that the note above accurately reflects all work, treatment, procedures, and medical decision making performed by me. Departure Information Dispostion Transfer Acute Care Facility (to [place]) Referrals Cas Hector M.D. (PCP) Patient Instructions My [facility] Problem Qualifiers Additional Impression: Intractable vomiting Vomiting type: unspecified Nausea presence: unspecified Qualified Codes: R11.10 - Vomiting, unspecified
[2017-09-17] MEDS ORDERED: SODIUM CHLORIDE 0.9% 500ML 500 ML IV STA ×3 (16:38→20:18)
[2017-09-17] MEDS ORDERED: OPTIRAY 320 IV PRN (16:45)
[2017-09-17 17:11] LABS: BASO % 0.2 %; BASO ABS # 0.02 K/uL (0-0.2); EOS % 0.1 %; EOS ABS # 0.01 K/uL (0-0.5); HEMATOCRIT 34.9 % (37-47); HEMOGLOBIN 11.3 g/dL (12.0-16.0); IG# 0.03 K/uL (0.00-0.02); LYMPH % 6.8 %; LYMPH ABS # 0.66 K/uL (1.2-3.4); MEAN CELL VOLUME 88.4 fL (80-100); MEAN CORPUSCULAR HEMOGLOBIN 28.6 pg (25-34); MEAN CORPUSCULAR HGB CONC 32.4 g/dl (32-36); MEAN PLATELET VOLUME 9.7 fL (7.4-10.4); MONO % 8.2 %; NEUT % 84.4 %; NEUT ABS # 8.22 K/uL (1.4-6.5); PLATELET COUNT 527 K/uL (130-400); RED CELL DISTRIBUTION WIDTH CV 15.6 % (11.5-14.5); WHITE BLOOD COUNT 9.74 K/uL (4.8-10.8)
--- NOTE | 2017-09-17 17:16 | DIAGNOSTIC IMAGING REPORT ---
CHEST ONE VIEW PORTABLE CLINICAL HISTORY: Pt c/o SOB dyspnea COMPARISON STUDY: 11/19/2016 FINDINGS: Tortuous thoracic aorta. Emphysematous change. No focal infiltrate. IMPRESSION: Emphysematous change. No acute process. The above report was generated using voice recognition software. It may contain grammatical, syntax or spelling errors. Electronically signed by: Ángel Spicer M.D. 09/17/2017 5:15 PM Dictated Date/Time: 09/17/2017 5:15 PM
[2017-09-17] MEDS ORDERED: TPRSR/25 PO (17:20)
[2017-09-17] MEDS ORDERED: SYMIN INH (17:20)
[2017-09-17] MEDS ORDERED: BUME1TAB PO (17:20)
[2017-09-17] MEDS ORDERED: ENOX40IN SQ (17:20)
[2017-09-17] MEDS ORDERED: OMEP40CA41 PO (17:20)
[2017-09-17] MEDS ORDERED: OXYC-609 PO (17:20)
[2017-09-17] MEDS ORDERED: NTRGSL/4 UT (17:20)
[2017-09-17] MEDS ORDERED: ONDA4TAB10 MT (17:23)
[2017-09-17] MEDS ORDERED: PROM25TA9 PO (17:23)
[2017-09-17 17:53] LABS: CALCIUM 9.4 mg/dl (8.5-10.1); CKMB 1.1 ng/ml (0.5-3.6); CREATININE 2.9 mg/dl (0.60-1.20); POTASSIUM 4.5 mmol/L (3.5-5.1); TOTAL PROTEIN 6.6 gm/dl (6.4-8.2)
[2017-09-17] MEDS ORDERED: ONDANSETRON INJ 2 MG/ML 2 ML VIAL IV STA (18:07)
--- NOTE | 2017-09-17 19:42 | DIAGNOSTIC IMAGING REPORT ---
ABDOMEN AND PELVIS CT WITH ORAL CONTRAST CT DOSE: 349.42 mGy.cm HISTORY: Acute generalized abdominal pain with nausea and vomiting. Pt c/o N V TECHNIQUE: Multiaxial CT images of the abdomen and pelvis were performed following the use of oral contrast. A dose lowering technique was utilized adhering to the principles of ALARA. COMPARISON STUDY: CT abdomen and pelvis 08/30/2017. FINDINGS: Lung bases appear clear. Coronary arterial calcifications are noted. Gallbladder is contracted. Evaluation of the solid abdominal organs is limited without the use of contrast. The liver, right adrenal gland and spleen are unremarkable. Mild nodular thickening of the left adrenal gland suggesting hyperplasia. The pancreatic head again appears to be markedly enlarged which is unchanged from comparison study 08/30/2017 measuring up to 5.0 cm in length. Vascular calcifications of the kidneys redemonstrated. 1.3 cm low attenuating lesion of the inferior pole right kidney suggests renal cyst. Ureters are unremarkable. There is nondependent air within the urinary bladder lumen. A past 3 device is noted in the vagina. Uterus is atrophic. Nonspecific prominence of the left ovary redemonstrated measuring up to 2.2 cm, unchanged. Calcifications of the right adnexa are again noted. Dilation of the descending thoracic aorta measures up to 3.6 cm. Sensitive atherosclerosis of the aorta is noted with aortobiiliac stent graft. No pathologic adenopathy identified. High attenuating material is noted within the gastric lumen. There is decreased amount of pneumoperitoneum in the upper abdomen. Persistent pneumoperitoneum is noted along the left hepatic lobe tracking along the evan hepatis along the first and second portions of the duodenum. Collection of air is noted within the right upper abdomen adjacent to the duodenum measuring up to 1.7 cm. No definite drainable abscess collection identified. There is no bowel obstruction. The appendix appears normal. Inflammatory stranding is noted within the right pericolic gutter which has decreased from prior. Post surgical changes of the abdominal wall with a small supraumbilical ventral abdominal hernia, 1.0 cm. Soft tissues are unremarkable. The bones appear moderately demineralized and appear intact. Large Schmorl's node at L3 with chronic appearing compression deformity at T12. IMPRESSION: 1. Decreased pneumoperitoneum from prior study with persistent pneumoperitoneum of the right upper abdomen adjacent to the left hepatic lobe, evan hepatis and proximal duodenum suggesting ongoing perforated viscus, likely from duodenal source. No drainable abscess collection identified. Surgical consultation recommended. 2. Decreased inflammatory stranding tracks along the right hepatic lobe and right pericolic gutter. 3. Heterogeneous increased size of the pancreatic head is again noted, suspicious for underlying pancreatic neoplasm. Follow-up again recommended. 4. No bowel obstruction. 5. Additional findings as above. Electronically signed by: Dick Colunga M.D. 09/17/2017 7:41 PM Dictated Date/Time: 09/17/2017 7:26 PM
[2017-09-17] MEDS ORDERED: DAPTOMYCIN IV STA (20:11)
[2017-09-17] MEDS ORDERED: CEFEPIME IV 1,000 MG in DEXTROSE 5% 100ML 100 ML IV STA (20:11)
[2017-09-17] MEDS ORDERED: SODIUM CHLORIDE 0.9% IV STA (20:11)
[2017-09-17] MEDS ORDERED: PROCHLORPERAZINE 5 MG/ML 2 ML VIAL IV STA (21:07)
[2017-09-17] MEDS ORDERED: VNTHFA/IN INH (22:53)
[2017-09-17] MEDS ORDERED: LPT/40 PO (22:53)
[2017-09-17] MEDS ORDERED: SPRIN/30 INH (22:53)
[2017-09-17] MEDS ORDERED: LOSA25TA18 PO (22:53)
[2017-09-17] MEDS ORDERED: ASPI81TA28 PO (22:53)
[2017-09-17 23:48] VITALS: BP 95/74; PULSE 94; O2SAT 94
== END 2017-09-17 23:48 | disposition short-term general hospital (02) ==
LOC: C.EDB 15:47
DX: K63.1 Perforation of intestine (nontraumatic) (principal); N17.9 Acute kidney failure, unspecified; C25.9 Malignant neoplasm of pancreas, unspecified; Z90.49 Acquired absence of other specified parts of digestive tract; J44.9 Chronic obstructive pulmonary disease, unspecified; E78.5 Hyperlipidemia, unspecified; I25.10 Atherosclerotic heart disease of native coronary artery without angina pectoris; I25.2 Old myocardial infarction; I10 Essential (primary) hypertension; M19.90 Unspecified osteoarthritis, unspecified site; M81.0 Age-related osteoporosis without current pathological fracture; I73.9 Peripheral vascular disease, unspecified; Z95.5 Presence of coronary angioplasty implant and graft; Z79.82 Long term (current) use of aspirin; Z79.51 Long term (current) use of inhaled steroids; Z88.8 Allergy status to other drugs, medicaments and biological substances; Z83.3 Family history of diabetes mellitus; Z82.49 Family history of ischemic heart disease and other diseases of the circulatory system; Z82.3 Family history of stroke